=== PATIENT | male | born 1950 | race Caucasian/White ===

== ENCOUNTER 2021-02-17 18:17 | Inpatient (IN) ==
--- OUTSIDE RECORDS SUMMARY | 2021-02-17 18:19 | External Medical Summary | Continuity of Care Document ---
:1950 Author Name Arlene Dow, Provider Address Unavailable Unavailable , Care Team Providers Name Role Phone Unavailable Unavailable Unavailable Kareen Pedraza PA-C Unavailable [email or web address] PRICE Dow, CHARLETTE Tejeda Unavailable Unavailable Unavailable Unavailable Unavailable Problems Elevated blood protein (273.8) (E88.09) Diabetes mellitus type 2, uncontrolled (250.02) (E11.65) Type 2 diabetes mellitus (250.00) (E11.9) Allergies and Adverse Reactions No Known Allergies (Allergy) Medications metFORMIN HCl - 500 MG Oral Tablet; TAKE 1 TABLET IN THE MORNING AND 2 TABLETS IN THE EVENING CHELITA Pedraza Quantity: 270 Refills: 3 ReliOn Ultima Test In Vitro Strip; TEST TWICE DAILY. CHELITA Pedraza Start: 27-Nov-2016 Quantity: 1 100 Strip Box Refills: 3 Procedures Procedures not documented Immunizations Immunizations not documented Family History Father Family history of cardiac disorder (V17.49) (Z82.49) Status: Active Family history of myocardial infarction (V17.3) (Z82.49) Sta tus: Active Brother Family history of acute myocardial infarction (V17.3) (Z82.4 9) Status: Active uncle Family history of Coronary artery disease (414.00) (I25.10) Status: Active Plan of Treatment Planned Observations Planned Goals not documented Results No Known Results Results not documented
--- OUTSIDE RECORDS SUMMARY | 2021-02-17 18:20 | External Medical Summary | Continuity of Care Document ---
:1950 Author Name Arlene Dow, Provider Address Unavailable Unavailable , Care Team Providers Name Role Phone Unavailable Unavailable Unavailable Kareen Pedraza PA-C Unavailable [email or web address] PRICE Dow, CHARLETTE Tejeda Unavailable Unavailable Unavailable Unavailable Unavailable Problems Diabetes mellitus type 2, uncontrolled (250.02) (E11.65) Elevated blood protein (273.8) (E88.09) Type 2 diabetes mellitus (250.00) (E11.9) Allergies [...]
[2021-02-17] MEDS ORDERED: dexAMETHasone**PF** 10 MG/ML VIAL IV ONE (18:47)
[2021-02-17] MEDS ORDERED: ALBUTEROL HFA 8 GM INHALER INH ONE (18:47)
[2021-02-17] MEDS ORDERED: guaiFENesin 600 MG TABCR PO STA (18:47)
[2021-02-17] MEDS ORDERED: SODIUM CHLORIDE 0.9% 1000ML 1,000 ML IV ONE (18:50)
[2021-02-17] MEDS ORDERED: FAMOTIDINE 20MG IV PUSH 20 MG/5 ML SYR IV STA (18:52)
[2021-02-17 20:01] LABS: Basophils # (auto) 0.01 K/uL (0-0.2); Basophils % (auto) 0.2 %; Eosinophils # (auto) 0.01 K/uL (0-0.5); Eosinophils % (auto) 0.2 %; Hematocrit (blood only) 38.9 % (42-52); Hemoglobin 13.4 g/dL (14.0-18.0); Immature Granulocytes # (auto) 0.02 K/uL (0.00-0.02); Immature Granulocytes % (auto) 0.3 %; Lymphocytes # (auto) 1.13 K/uL (1.2-3.4); Lymphocytes % (auto) 17.3 %; Mean Corpuscular Hemoglobin 29.7 pg (25-34); Mean Corpuscular Hgb Conc 34.4 g/dL (32-36); Mean Corpuscular Volume 86.3 fL (80-100); Mean Platelet Volume 9.4 fL (7.4-10.4); Monocytes # (auto) 0.54 K/uL (0.11-0.59); Monocytes % (auto) 8.2 %; Neutrophils # (auto) 4.84 K/uL (1.4-6.5); Neutrophils % (auto) 73.8 %; Platelet Count 241 K/uL (130-400); RDW Coefficient of Variation 13.4 % (11.5-14.5); RDW Standard Deviation 42.8 fL (36.4-46.3); Red Blood Count 4.51 M/uL (4.7-6.1); White Blood Count 6.55 K/uL (4.8-10.8)
[2021-02-17 20:15] LABS: Alanine Aminotransferase 20 U/L (12-78); Aspartate Aminotransferase 18 U/L (15-37); BUN Creatinine Ratio 16.1 (10-20); Bilirubin Direct 0.1 mg/dl (0-0.2); Blood Urea Nitrogen 22 mg/dl (7-18); Calcium 8.4 mg/dl (8.5-10.1); Carbon Dioxide 27 mmol/L (21-32); Chloride 102 mmol/L (98-107); Est GFR (African American) 60.6; Est GFR (Non-African American) 52.3; Glucose 255 mg/dl (70-99); Lipase 29 U/L (73-393); Potassium 4.1 mmol/L (3.5-5.1); Sodium 134 mmol/L (136-145)
[2021-02-17 20:18] LABS: Albumin Globulin Ratio 0.5 (0.9-2); Alkaline Phosphatase 94 U/L (45-117); Bilirubin,Total 0.4 mg/dl (0.2-1); Creatine Kinase 102 U/L (39-308); Globulin 5.6 gm/dl (2.5-4.0); Phosphorus 2.5 mg/dl (2.5-4.9); Total Protein 8.6 gm/dl (6.4-8.2); Troponin I < 0.015 ng/ml (0-0.045)
[2021-02-17 20:42] LABS: Influenza A virus by PCR Negative (Neg); Influenza B virus by PCR Negative (Neg); RSV by PCR Negative (Neg)
--- NOTE | 2021-02-17 20:51 | XRay Report ---
XR chest 1V portable CLINICAL HISTORY: Chest pain. COMPARISON STUDY: Chest radiograph May 09, 2016. FINDINGS: Lung volumes are mildly diminished. There is no pneumothorax or pleural effusion. There is mild interstitial thickening and patchy bilateral airspace opacity. Cardiac size is normal. Mediastin al contours are unremarkable. IMPRESSION: Mild bilateral airspace opacities and interstitial thickening which favor an infectious process such as viral pneumonia. Radiographic follow-up is recommended ACT 112: Negative or not required by law. Electronically signed by: Rohith Jansen M.D. 02/17/2021 8:49 PM
[2021-02-17 20:54] LABS: SARS CoV2 RNA(COVID-19) InHosp POSITIVE (Negative)
--- NOTE | 2021-02-17 22:17 | Emergency Department Note ---
Impression & Plan Pneumonia due to COVID-19 virus, Hyperglycemia, Hypoxia, Dehydration ED Provider Note NAME: BRIAN PINEDA AGE: 70 SEX: M ARRIVES VIA: Walk-In INFORMANT: Patient, ED PROVIDER(S): Jameel Rod MD CHIEF COMPLAINT: Cough, fevers, bodyaches. PLAN: Disposition: Admit. MEDICAL DECISION MAKING: The patient is a pleasant 70-year-old gentleman with a past medical history of diabetes who presents emergency department with approximately 10 days of progressive cough, congestion, body aches, feverishness with loss of taste and smell that he reports became much worse over the past couple of days where he will wake up at night with coughing fits unable to catch his breath. He reports his also has similar symptoms but not as bad. They have yet to be tested for COVID-19. He denies any known COVID-19 exposures other than some neighbors who had children who are asymptomatic but tested positive that he was briefly around. He reports tightness throughout his chest but denies any chest pain with deep inspiration. He reports some nausea but no vomiting. He has loose stools. On arrival patient fatigued appearing but no acute distress, afebrile with stable vital signs. His O2 saturation however will go down to as low as 91% on room air. Given this in the setting of his dyspnea he was placed on 2 L nasal cannula. He does appear clinically dry. Lungs with scant intermittent wheeze but is otherwise clear. Abdomen is benign. EKG without overt acute ischemia. WBC and platelets within normal limits. H/H 13.4/30.9 without recent values for comparison. Chemistry without metabolic acidosis. BUN is 22 consistent with the patient's clinically dry appearance. Glucose 255 without acidosis. Electrolytes and LFTs unremarkable. Troponin negative/undetectable. Lipase is not elevated. COVID-19 PCR was positive. Chest x-ray shows bilateral infiltrates consistent with COVID-19 pneumonia. Upon reevaluation patient did report feeling some improvement after IV fluid hydration, dexamethasone, guaifenesin and albuterol MDI. However given the patient's comorbidities with diabetes and mild hypoxia in the setting of COVID-19 pneumonia he did agree with plan for admission. Case was discussed with Dr. Montemayor, [facility] hospitalist, who will evaluate the patient for admission. Triage Nursing notes reviewed and agree them. Prior medical records reviewed Vital Signs: reviewed and remarkable for hypoxia. Differential diagnosis: Reactive airway disease, pneumonia, pneumothorax, COPD, CHF, infections, cardiac ischemia, pulmonary embolism, musculoskeletal, gastrointestinal, as well as other pathologies. ER treatment provided: See below. Diagnostics interpreted by me: ECG: NSR, 88 bpm, no ectopy, no overt ST elevation or depression. Cardiac Monitoring: An order for continuous cardiac monitoring was placed and demonstrated NSR, 88 bpm, no ectopy. Laboratory studies: See below Imaging studies: See below Consultation(s): Case was discussed with Dr. Montemayor, [facility] hospitalist, who will evaluate the patient for admission. HPI: The patient is a pleasant 70-year-old gentleman with a past medical history of diabetes who presents emergency department with approximately 10 days of progressive cough, congestion, body aches, feverishness with loss of taste and smell that he reports became much worse over the past couple of days where he will wake up at night with coughing fits unable to catch his breath. He reports his also has similar symptoms but not as bad. They have yet to be tested for COVID-19. He denies any known COVID-19 exposures other than some neighbors who had children who are asymptomatic but tested positive that he was briefly around. He reports tightness throughout his chest but denies any chest pain with deep inspiration. He reports some nausea but no vomiting. He has loose stools. ROS: See above HPI for pertinent positives & negatives. A total of 10 systems re viewed and were otherwise negative. PAST MEDICAL HISTORY:See Below PAST SURGICAL HISTORY:See Below FAMILY HISTORY:See Below SOCIAL HISTORY:See Below HOME MEDICATIONS:See Below ALLERGIES:See Below VITALS:See Below PHYSICAL EXAMINATION: GENERAL: Awake, alert, fatigued-appearing, in no distress HENT: Normocephalic, atraumatic. Oropharynx with dry mucous membranes and otherwise unremarkable. EYES: Normal conjunctiva. Sclera non-icteric. NECK: Supple. No nuchal rigidity. FROM. No JVD. RESPIRATORY: Scant intermittent wheeze, otherwise, clear to auscultation. CARDIAC: Regular rate, normal rhythm. Extremities warm and well perfused. Pulses equal. ABDOMEN: Soft, non-distended. No tenderness to palpation. No rebound or guarding. No masses. RECTAL: Deferred. MUSCULOSKELETAL: Chest examination reveals no tenderness. The back is symmetrical on inspection without obvious abnormality. There is no CVA tenderness to palpation. No joint edema. LOWER EXTREMITIES: Calves are equal size bilaterally and non-tender. No edema. No discoloration. NEURO: Normal sensorium. No sensory or motor deficits noted. SKIN: No rash or jaundice noted. Jameel Rod MD Past Med/Surg History Medical History Type 2 diabetes mellitus Social History Smoking Status: Former smoker Hx Alcohol Use: No Hx Substance Use: No Preferred Language: [employer] [employer] Manager Required: No Beliefs That Will Affect Care: None Current Living Situation: Spouse Other Information That Helps Us Care for You: No Feels Safe at Home: Yes Safety Concerns: Feels Safe At This Time Assistive Devices: None Allergies Allergies Allergy/AdvReac Type Severity Reaction Status Date / Time No Known Allergies Allergy Verified 02/17/21 19:50 Home Meds Home Medications Medication Instructions Recorded Confirmed insulin NPH and regular human 10 - 15 unit SUBCUT AC 02/17/21 02/17/21 [Novolin 70-30 FlexPen U-100] Results & Data (ED) Vital Signs Vital Signs - 24 hr 02/17/21 18:21 02/17/21 18:57 02/17/21 19:46 Temperature 37.2 C Temperature Source Temporal Artery Scan Pulse Rate 93 H 87 Pulse Rate from SpO2 Sensor 88 Respiratory Rate 20 32 H Blood Pressure 174/82 H 148/81 H Blood Pressure Mean 112 103 Pulse Oximetry 92 90 94 Oxygen Delivery Method Room Air Room Air Nasal Cannula Oxygen Flow Rate 0 Sepsis Recent Fever Within 48 Hours Yes Sepsis New/Unexplained Change in Mental Status No Sepsis Action Taken by Nursing No Action Required Oxygen Flow Rate - Titration 2 Pulse Oximetry Post Tiitration 96 02/17/21 20:00 02/17/21 20:34 02/17/21 21:00 Temperature Temperature Source Pulse Rate 83 89 87 Pulse Rate from SpO2 Sensor 84 89 86 Respiratory Rate 30 H 26 H 32 H Blood Pressure 155/83 H 158/92 H 127/78 Blood Pressure Mean 107 114 94 Pulse Oximetry 96 96 93 Oxygen Delivery Method Oxygen Flow Rate Sepsis Recent Fever Within 48 Hours Sepsis New/Unexplained Change in Mental Status Sepsis Action Taken by Nursing Oxygen Flow Rate - Titration Pulse Oximetry Post Tiitration 02/17/21 21:49 04/05/21 22:00 02/17/21 22:30 Temperature Temperature Source Pulse Rate 87 88 96 H Pulse Rate from SpO2 Sensor 87 89 Respiratory Rate 24 29 H 21 Blood Pressure 137/81 147/84 H Blood Pressure Mean 99 105 Pulse Oximetry 92 91 Oxygen Delivery Method Oxygen Flow Rate Sepsis Recent Fever Within 48 Hours Sepsis New/Unexplained Change in Mental Status Sepsis Action Taken by Nursing Oxygen Flow Rate - Titration Pulse Oximetry Post Tiitration 02/17/21 23:00 Temperature Temperature Source Pulse Rate 87 Pulse Rate from SpO2 Sensor 87 Respiratory Rate 30 H Blood Pressure Blood Pressure Mean Pulse Oximetry 93 Oxygen Delivery Method Oxygen Flow Rate Sepsis Recent Fever Within 48 Hours Sepsis New/Unexplained Change in Mental Status Sepsis Action Taken by Nursing Oxygen Flow Rate - Titration Pulse Oximetry Post Tiitration Laboratory Data Attestation: I reviewed the patient's lab results. Result diagrams: 02/17/21 19:30 02/17/21 19:30 Lab Results 02/17/21 02/17/21 02/17/21 Range/Units 19:30 19:30 19:30 WBC 6.55 (4.8-10.8) K/uL RBC 4.51 L (4.7-6.1) M/uL Hgb 13.4 L (14.0-18.0) g/dL Hct 38.9 L (42-52) % MCV 86.3 (80-100) fL MCH 29.7 (25-34) pg MCHC 34.4 (32-36) g/dL RDW Std Deviation 42.8 (36.4-46.3) fL RDW Coeff of David 13.4 (11.5-14.5) % Plt Count 241 (130-400) K/uL MPV 9.4 (7.4-10.4) fL Immature Gran % (Auto) 0.3 % Neut % (Auto) 73.8 % Lymph % (Auto) 17.3 % [place] % (Auto) 8.2 % Eos % (Auto) 0.2 % Baso % (Auto) 0.2 % Neut # (Auto) 4.84 (1.4-6.5) K/uL Lymph # (Auto) 1.13 L (1.2-3.4) K/uL [place] # (Auto) 0.54 (0.11-0.59) K/uL Eos # (Auto) 0.01 (0-0.5) K/uL Baso # (Auto) 0.01 (0-0.2) K/uL Immature Gran # (Auto) 0.02 (0.00-0.02) K/uL Sodium 134 L (136-145) mmol/L Potassium 4.1 (3.5-5.1) mmol/L Chloride 102 (98-107) mmol/L Carbon Dioxide 27 (21-32) mmol/L Anion Gap 5.0 (3-11) BUN 22 H (7-18) mg/dl Creatinine 1.37 (0.6-1.4) mg/dl Est Cr Clr Drug Dosing Not Reportable Est GFR ( Amer) 60.6 Est GFR (Non-Af Amer) 52.3 BUN/Creatinine Ratio 16.1 (10-20) Glucose 255 H (70-99) mg/dl Calcium 8.4 L (8.5-10.1) mg/dl Phosphorus 2.5 (2.5-4.9) mg/dl Magnesium 2.0 (1.8-2.4) mg/dl Total Bilirubin 0.4 (0.2-1) mg/dl Direct Bilirubin 0.1 (0-0.2) mg/dl AST 18 (15-37) U/L ALT 20 (12-78) U/L Alkaline Phosphatase 94 (45-117) U/L Total Creatine Kinase 102 (39-308) U/L Troponin I < 0.015 (0-0.045) ng/ml Total Protein 8.6 H (6.4-8.2) gm/dl Albumin 3.0 L (3.4-5.0) gm/dl Globulin 5.6 H (2.5-4.0) gm/dl Albumin/Globulin Ratio 0.5 L (0.9-2) Lipase 29 L (73-393) U/L COVID-19 Eval Order [facility]FluRsv at [facility] SARS-CoV-2 (PCR) (Negative) Influenza Type A (PCR) (Neg) Influenza Type B (PCR) (Neg) RSV (RT-PCR) (Neg) 02/17/21 Range/Units 19:30 WBC (4.8-10.8) K/uL RBC (4.7-6.1) M/uL Hgb (14.0-18.0) g/dL Hct (42-52) % MCV (80-100) fL MCH (25-34) pg MCHC (32-36) g/dL RDW Std Deviation (36.4-46.3) fL RDW Coeff of David (11.5-14.5) % Plt Count (130-400) K/uL MPV (7.4-10.4) fL Immature Gran % (Auto) % Neut % (Auto) % Lymph % (Auto) % [place] % (Auto) % Eos % (Auto) % Baso % (Auto) % Neut # (Auto) (1.4-6.5) K/uL Lymph # (Auto) (1.2-3.4) K/uL [place] # (Auto) (0.11-0.59) K/uL Eos # (Auto) (0-0.5) K/uL Baso # (Auto) (0-0.2) K/uL Immature Gran # (Auto) (0.00-0.02) K/uL Sodium (136-145) mmol/L Potassium (3.5-5.1) mmol/L Chloride (98-107) mmol/L Carbon Dioxide (21-32) mmol/L Anion Gap (3-11) BUN (7-18) mg/dl Creatinine (0.6-1.4) mg/dl Est Cr Clr Drug Dosing Est GFR ( Amer) Est GFR (Non-Af Amer) BUN/Creatinine Ratio (10-20) Glucose (70-99) mg/dl Calcium (8.5-10.1) mg/dl Phosphorus (2.5-4.9) mg/dl Magnesium (1.8-2.4) mg/dl Total Bilirubin (0.2-1) mg/dl Direct Bilirubin (0-0.2) mg/dl AST (15-37) U/L ALT (12-78) U/L Alkaline Phosphatase (45-117) U/L Total Creatine Kinase (39-308) U/L Troponin I (0-0.045) ng/ml Total Protein (6.4-8.2) gm/dl Albumin (3.4-5.0) gm/dl Globulin (2.5-4.0) gm/dl Albumin/Globulin Ratio (0.9-2) Lipase (73-393) U/L COVID-19 Eval Order SARS-CoV-2 (PCR) POSITIVE A* (Negative) Influenza Type A (PCR) Negative (Neg) Influenza Type B (PCR) Negative (Neg) RSV (RT-PCR) Negative (Neg) Administered Medications Remdesivir 200 mg/ Sodium (Chloride) 250 mls @ 125 mls/hr IV ONE ONE; Protocol Stop: 02/18/21 04:29 Last Admin: 02/18/21 02:45 Dose: 125 mls/hr Documented by: [id number] Insulin Aspart (Insulin Aspart 100 Units/Ml 3 Ml Pen) 0 units SC ACHS HERI Stop: 03/20/21 02:29 Last Admin: 02/18/21 02:43 Dose: Not Given Documented by: [id number] Discontinued Medications Albuterol (Albuterol Hfa 8 Gm Inhaler) 2 puffs INH NOW ONE Stop: 02/17/21 18:48 Last Admin: 02/17/21 19:31 Dose: 2 puffs Documented by: [id number] Dexamethasone Sodium Phosphate (DexamethasonePf 10 Mg/Ml Vial) 10 mg IV NOW ONE Stop: 02/17/21 18:48 Last Admin: 02/17/21 19:31 Dose: 10 mg Documented by: [id number] Guaifenesin (Guaifenesin 600 Mg Tabcr) 600 mg PO NOW STA Stop: 02/17/21 18:48 Last Admin: 02/17/21 19:31 Dose: 600 mg Documented by: [id number] Sodium Chloride (Nss 1000ml) 1,000 mls @ 999 mls/hr IV .Q1H1M ONE Stop: 02/17/21 19:50 Last Infusion: 02/17/21 20:38 Dose: 0 mls/hr Documented by: [id number] Admin: 02/17/21 19:31 Dose: 999 mls/hr Documented by: [id number] Famotidine (Pepcid 20mg Iv Push) 20 mg in 5 mls @ 2.5 mls/min IV NOW STA Stop: 02/17/21 18:53 Last Admin: 02/17/21 19:31 Dose: 2.5 mls/min Documented by: [id number] Imaging Data Radiologist's Impression: Chest X-Ray 02/17/21 18:48 XR chest 1V portable CLINICAL HISTORY: Chest pain. COMPARISON STUDY: Chest radiograph May 09, 2016. FINDINGS: Lung volumes are mildly diminished. There is no pneumothorax or pleural effusion. There is mild interstitial thickening and patchy bilateral airspace opacity. Cardiac size is normal. Mediastinal contours are unremarkable. IMPRESSION: Mild bilateral airspace opacities and interstitial thickening which favor an infectious process such as viral pneumonia. Radiographic follow-up is recommended ACT 112: Negative or not required by law. Electronically signed by: Rohith Jansen M.D. 02/17/2021 8:49 PM Discharge Plan Visit Data Chief Complaint: Fever Stated Complaint: fever ED Provider: Jameel Rod Discharge Problem: Pneumonia due to COVID-19 virus, Hyperglycemia, Hypoxia, Dehydration Patient Disposition: Admitted As Inpatient Discharge Instructions Interventions: ED Discharge Assessment Last Done: 02/18/21 01:04
[2021-02-18] MEDS ORDERED: ACETAMINOPHEN 325 MG TAB PO PRN (02:01)
[2021-02-18] MEDS ORDERED: NITROGLYCERIN SL 0.4 MG/TAB TAB SL PRN (02:01)
[2021-02-18] MEDS ORDERED: ONDANSETRON INJ 2 MG/ML 2 ML VIAL IV PRN (02:01)
[2021-02-18] MEDS ORDERED: guaiFENesin SUGAR FREE 200 MG/10 ML UDC PO PRN (02:01)
[2021-02-18] MEDS ORDERED: CARBOHYDRATES FOR HYPOGLYCEMIA PO PRN (02:15)
[2021-02-18] MEDS ORDERED: GLUCOSE 10 TABS/TUBE PO PRN (02:15)
[2021-02-18] MEDS ORDERED: DEXTROSE 50% 50 ML SYRINGE IV PRN (02:15)
[2021-02-18] MEDS ORDERED: GLUCOSE 40% GEL 15 GM TUBE PO PRN (02:15)
[2021-02-18] MEDS ORDERED: GLUCAGON FOR INJ 1 MG VIAL IM PRN (02:15)
[2021-02-18] MEDS ORDERED: REMDESIVIR 200 MG in SODIUM CHLORIDE 0.9% 210 ML IV ONE (02:30)
[2021-02-18] MEDS ORDERED: INSULIN ASPART 100 UNITS/ML 3 ML PEN SC SCH (02:30)
[2021-02-18] MEDS ORDERED: INSULIN GLARGINE SOLOSTAR 100 UNITS/ML 3 ML PEN SC SCH (02:30)
--- NOTE | 2021-02-18 02:40 | History and Physical Report ---
DATE OF ADMISSION: 02/17/2021 CHIEF COMPLAINT: Shortness of breath and cough. HISTORY OF PRESENT ILLNESS: This is a 70-year-old male with past medical history significant for type 2 diabetes, on insulin, having COVID kind of symptoms since the last 10 days with a cough, short of breath, headaches, poor appetite, nausea, body aches, weakness, who came to the ER and he was COVID positive and his oxygen saturations were up and down in the low 90s. He was given 2 liters oxygen. So we were called for admission. Chest x-ray shows multifocal pneumonia. Currently resting comfortably and hemodynamically stable. Currently has some headache. Has some blurred visions. No earache, no runny nose, no sore throat. Denies any chest pain, no abdominal pain, no diarrhea. ALLERGIES: No known drug allergies. PAST MEDICAL HISTORY: As mentioned above. PAST SURGICAL HISTORY: No surgical history on file. MEDICATIONS: The patient is on insulin NPH a.c. FAMILY HISTORY: Significant for father has heart attack, mother has gastrointestinal disorder, brother has heart attack. SOCIAL HISTORY: . No smoking, no alcohol. REVIEW OF SYSTEMS: As per HPI. Rest of the review of systems negative. PHYSICAL EXAMINATION: GENERAL: The patient is of moderate built, not in acute distress. VITAL SIGNS: Temperature 37.2, pulse 87, respiratory rate in 20s, blood pressure 147/84, oxygen 93%. HEENT: Pupils equal, round, and reactive to light. Oral mucosa moist. NECK: No JVD, no neck masses seen. CARDIOVASCULAR: S1, S2 heard. Regular rate and rhythm, no murmur, no gallop. RESPIRATORY SYSTEM: Normal AP diameter. No accessory muscle use. No wheezing, no crackles. ABDOMEN: Soft, bowel sounds present, nontender. No distention. CENTRAL NERVOUS SYSTEM: Cranial nerves II-XII grossly intact, nonfocal. EXTREMITIES: No edema, no erythema. LABORATORY DATA: WBC 6.5, hemoglobin 13.4, hematocrit 38.9, platelets 241. Sodium 134, potassium 4.4, chloride 102, bicarbonate 27, BUN 22, creatinine 1.3, serum glucose 255, calcium 8.4, phosphorus 2.5, magnesium 2, total bilirubin 0.4, direct bilirubin 0.1, AST 18, ALT 20, alkaline phosphatase 94, total creatinine kinase 102. Troponin I less than 0.015. Lipase 29. SARS-CoV-2 PCR positive. Influenza A and B PCR negative. RSV PCR negative. IMAGING DATA: Chest x-ray, some mild bilateral airspace opacities and interstitial thickening which favor infectious process such as viral pneumonia. EKG: Normal sinus rhythm with a rate of 88, no acute ST changes seen. ASSESSMENT AND PLAN: This is a 70-year-old male who presents with COVID pneumonia. 1. COVID pneumonia: Oxygen going up and down, may need 2 liters oxygen. Received Decadron in the ER. Will continue with Decadron and remdesivir. and follow remdesivir labs. Closely monitor in the hospital. Follow the D- dimers and troponin levels in the a.m. Follow the labs in the a.m. 2. Diabetes: On insulin. Patient likes to take his own insulin. Monitor the blood sugar while the patient is on steroids. 3. Deep venous thrombosis prophylaxis: Lovenox. DISPOSITION: Closely monitor in tele floor. Level 1 full code. Expect to discharge home and follow with family doctor. MILO
[2021-02-18] MEDS: SODIUM CHLORIDE 0.9% 10ML FLUSH IV SCH (04:53)
[2021-02-18] MEDS: ENOXAPARIN INJ 40 MG/0.4 ML SYR SQ SCH (06:03)
[2021-02-18 06:47] LABS: Basophils # (auto) 0.01 K/uL (0-0.2); Basophils % (auto) 0.2 %; Hemoglobin 13.4 g/dL (14.0-18.0); Immature Granulocytes # (auto) 0.02 K/uL (0.00-0.02); Immature Granulocytes % (auto) 0.3 %; Lymphocytes # (auto) 0.95 K/uL (1.2-3.4); Lymphocytes % (auto) 15.1 %; Mean Corpuscular Hemoglobin 29.1 pg (25-34); Mean Corpuscular Hgb Conc 33.5 g/dL (32-36); Mean Platelet Volume 9.5 fL (7.4-10.4); Monocytes # (auto) 0.33 K/uL (0.11-0.59); Monocytes % (auto) 5.2 %; Neutrophils % (auto) 79.2 %; Platelet Count 241 K/uL (130-400); RDW Coefficient of Variation 13.4 % (11.5-14.5); RDW Standard Deviation 42.6 fL (36.4-46.3); White Blood Count 6.31 K/uL (4.8-10.8)
[2021-02-18 07:15] LABS: Alanine Aminotransferase 19 U/L (12-78); Albumin Level 2.9 gm/dl (3.4-5.0); Aspartate Aminotransferase 17 U/L (15-37); BUN Creatinine Ratio 18.4 (10-20); Bilirubin Direct < 0.1 mg/dl (0-0.2); Blood Urea Nitrogen 22 mg/dl (7-18); Calcium 8.5 mg/dl (8.5-10.1); Carbon Dioxide 23 mmol/L (21-32); Chloride 106 mmol/L (98-107); Creatinine Clr Calc Pharmacy 62.9 ml/min; Est GFR (African American) 72.5; Est GFR (Non-African American) 62.6; Glucose 154 mg/dl (70-99); Magnesium 2.2 mg/dl (1.8-2.4); Potassium 3.7 mmol/L (3.5-5.1); Sodium 135 mmol/L (136-145)
[2021-02-18 07:20] LABS: Alkaline Phosphatase 94 U/L (45-117); Bilirubin,Total 0.3 mg/dl (0.2-1); Total Protein 8.4 gm/dl (6.4-8.2); Troponin I < 0.015 ng/ml (0-0.045)
[2021-02-18 07:33] LABS: D Dimer 720 ug/L FEU (0-500)
[2021-02-18 07:50] LABS: Estimated Average Glucose 206 mg/dl; Hemoglobin A1C 8.8 % (4.5-5.6)
[2021-02-18] MEDS ORDERED: OPTIRAY 320 125ml IV ONE (08:30)
--- NOTE | 2021-02-18 08:49 | CT Scan Report ---
CT ANGIOGRAPHY OF THE CHEST, PULMONARY EMBOLUS PROTOCOL CLINICAL HISTORY: Shortness of breath. Cough. Covid. COMPARISON STUDY: Chest radiograph February 17, 2021. TECHNIQUE: Following IV administration of 119 mL of Optiray-320, helical axial images of the chest we re obtained utilizing the pulmonary embolus protocol. Maximal intensity projections and sagittal and coronal reformats were viewed on an independent 3D workstation. IV contrast was administered withou t complication. Automated exposure control was utilized for the study. A dose lowering technique wa s utilized adhering to the principles of ALARA. CT DOSE: 520.83 mGycm FINDINGS: No pulmonary emboli are identified. Mild cardiomegaly is noted. There is moderate to marke d coronary artery calcification. No pericardial effusion is present. No enlarged thoracic lymph nodes are present. There is no pneumothorax or pleural effusion. Central airways are patent. Moderate mult ifocal groundglass opacities within the lungs are noted. These correspond to the airspace opacities o n prior chest radiograph. There is no cavitation. Bony thorax is unremarkable. Visualized portions of the upper abdomen are also unremarkable. IMPRESSION: 1. No pulmonary emboli identified. 2. Moderate multifocal groundglass opacities within the lungs consistent with viral pneumonia. 3. Moderate to marked coronary artery calcification. ACT 112: Negative or not required by law. Electronically signed by: Rohith Jansen M.D. 02/18/2021 8:48 AM
[2021-02-18] MEDS: dexAMETHasone 6 MG in SYRINGE 0 ML IV SCH (09:08)
[2021-02-18] MEDS ORDERED: guaiFENesin/DEXTROM SYRUP 200MG/20MG 10ML UDC PO PRN (12:04)
--- NOTE | 2021-02-18 14:06 | Electrocardiogram Report ---
Test Reason : Blood Pressure : / mmHG Vent. Rate : 088 BPM Atrial Rate : 088 BPM P-R Int : 152 ms QRS Dur : 096 ms QT Int : 336 ms P-R-T Axes : 061 033 028 degrees QTc Int : 406 ms Poor data quality, interpretation may be adversely affected Normal sinus rhythm Normal ECG When compared with ECG of 09-MAY-2016 13:24, No significant change was found Confirmed by Jose R Greenberg ([id number]) on 02/18/2021 2:05:56 PM Referred By: Dariusz Cordova Confirmed By:Jose R Greenberg
[2021-02-18] MEDS ORDERED: PHARMACY GLYCEMIC MGMT CONSULT SCH (14:38)
--- NOTE | 2021-02-18 15:17 | Pharmacy Report ---
Pharmacy Glycemic Short Note 2 - Date of Service February 18, 2021 - Glycemic Short BSG Results (Last 24 hours): 02/17/21 02/18/21 19:30 06:10 Glucose 255 H 154 H OUTPATIENT ANTIDIABETIC REGIMEN: * 30-40 units of insulin per day * Novolin R per scale * Novolin 70/30 12-15 units Q HS * A1c = 8.8 02/18/21 ASSESSMENT: * Patient admitted to COVID19 unit for viral pneumonia * Patient states he is type 1 diabetic however documentation elsewhere in medical record states type 2 * He is currently receiving IV dexamethasone which will likely lead to greater insulin resistance * He is not willing to allow outside help with his insulin regimen at this time. Will follow the patient's BSGs with his own management and make attempts to intervene if he is struggling. He has his own glucometer as well as CGM. I ask that his BSGs be recorded on form NS-824 per policy. I also asked that RN observe and document doses of insulin given. * His own Novolin R were ID'd and relabeled. We have dispensed a vial of NPH for him to use at bedtime rather than 70/30 insulin as the rapid acting component isn't ideal for HS admin. PLAN FOR INPATIENT GLYCEMIC CONTROL: * Patient to manage his own glycemic control today using SQ Regular insulin ACHS and NPH at bedtime * RN to observe and chart all insulin doses administered. Patient to document doses given and BSGs recorded on NS-824 form * RN to check hospital [place] against patient's CGM at least once daily and report variation greater than 20% (this disqualifies ongoing use of CGM) * Pharmacy will touch base with RN periodically to gather info on patient's glycemic control PLAN FOR DISCHARGE: * to be determined.
--- NOTE | 2021-02-18 15:44 | Hospitalist Progress Note ---
Date of Service February 18, 2021 Assessment & Plan (1) Pneumonia due to COVID-19 virus: Symptomatic for 10 days with desaturation on admission CTA did not show any pulmonary embolism but showed moderate multifocal groundglass opacities within the lungs consistent with viral pneumonia Convalescent plasma therapy was not considered Has been getting remdesivir and dexamethasone Clinically stable and has not been requiring any oxygen to maintain saturation We will continue current management (2) Diabetes mellitus type 2, insulin dependent: Noted to be hyperglycemic on admission at 255 The patient likes to have his blood sugar monitored and administer insulin accordingly Glycemic pharmacist has been consulted Hemoglobin A1c was 8.8 as of 02/18/2021 DVT prophylaxis Subcu Lovenox CODE STATUS Full Admission and Anticipated Discharge Date Admission Date: February 17, 2021 Subjective 02/18/2021 The patient was seen and examined in telemetry and Covid unit He was admitted with increasing shortness of breath and was noted to have Covid positive He required 2 L of oxygen during admission but since this morning he is saturating well with room air Has cough but denies any other symptoms Review of Systems Review of Systems: All systems reviewed and are unremarkable except as noted below Respiratory: + cough and + dyspnea on exertion; no dyspnea Physical Exam Physical Exam: Sitting at the edge of the bed without any apparent distress Constitutional: well developed, well nourished and average body habitus; not ill appearing Eyes: PERRL, conjunctivae normal, anicteric sclerae ENMT: external ear and nose normal, oropharynx normal Neck: trachea midline, no thyromegaly Respiratory: no respiratory distress Auscultation: lungs clear to auscultation bilaterally and + diminished lung sounds (Lower part of the lungs) Cardiovascular: Rate/Rhythm: regular rate and regular rhythm; not tachycardic Heart Sounds: no murmur Extremities: no edema Gastrointestinal (Abdomen): Inspection/Auscultation: normal bowel sounds; abdomen not distended Percussion/Palpation: abdomen soft; abdomen nontender Musculoskeletal: No acute arthritis in any joint Neurologic: Alert, awake and oriented x3 Psychiatric: A+Ox3, euthymic affect Lymphatic: no cervical or axillary lymphadenopathy Results & Data Results & Data ([facility]) Vital Signs (Past 12 Hours) Vital Signs Temp Pulse Pulse Resp BP Pulse Ox 02/18/21 15:26 79 02/18/21 11:29 36.7 C 85 16 156/89 H 92 02/18/21 11:07 71 02/18/21 07:24 36.6 C 70 16 141/83 H 91 Laboratory Results Short CBC 02/17/21 02/18/21 Range/Units 19:30 06:10 WBC 6.55 6.31 (4.8-10.8) K/uL Hgb 13.4 L 13.4 L (14.0-18.0) g/dL Hct 38.9 L 40.0 L (42-52) % Plt Count 241 241 (130-400) K/uL BMP 02/17/21 02/18/21 19:30 06:10 Sodium 134 L 135 L Potassium 4.1 3.7 Chloride 102 106 Carbon Dioxide 27 23 BUN 22 H 22 H Creatinine 1.37 1.18 Glucose 255 H 154 H Calcium 8.4 L 8.5 Cardiac Enzymes 02/17/21 02/18/21 Range/Units 19:30 06:10 Total Creatine Kinase 102 (39-308) U/L Troponin I < 0.015 < 0.015 (0-0.045) ng/ml Liver Function 02/17/21 02/18/21 Range/Units 19:30 06:10 Total Bilirubin 0.4 0.3 (0.2-1) mg/dl Direct Bilirubin 0.1 < 0.1 (0-0.2) mg/dl AST 18 17 (15-37) U/L ALT 20 19 (12-78) U/L Alkaline Phosphatase 94 94 (45-117) U/L Albumin 3.0 L 2.9 L (3.4-5.0) gm/dl Medications Administered Current Inpatient Medications Acetaminophen (Acetaminophen 325 Mg Tab) 650 mg PO Q4H PRN PRN Reason: Pain or Fever Stop: 03/20/21 02:00 Dextrose (Dextrose 50% 50 Ml Syringe) 25 - 50 ml IV UD PRN; Protocol PRN Reason: Hypoglycemia Protocol Stop: 03/20/21 02:14 Enoxaparin Sodium (Enoxaparin Inj 40 Mg/0.4 Ml Syr) 40 mg SQ Q24H [facility] Stop: 03/20/21 05:59 Last Admin: 02/18/21 06:03 Dose: 40 mg Documented by: Glucagon (Glucagon For Inj 1 Mg Vial) 1 mg IM UD PRN; Protocol PRN Reason: Hypoglycemia Protocol Stop: 03/20/21 02:14 Glucose (Glucose 40% Gel 15 Gm Tube) 15 - 30 gm PO UD PRN; Protocol PRN Reason: Hypoglycemia Protocol Stop: 03/20/21 02:14 Glucose (Glucose 10 Tabs/Tube) 4 - 8 tabs PO UD PRN; Protocol PRN Reason: Hypoglycemia Protocol Stop: 03/20/21 02:14 Guaifenesin (Guaifenesin Sugar Free 200 Mg/10 Ml Udc) 200 mg PO Q6H PRN PRN Reason: Cough Stop: 03/20/21 02:00 Guaifenesin (Guaifenesin 600 Mg Tabcr) 600 mg PO Q12 [facility]I Stop: 03/20/21 20:59 Guaifenesin/Dextromethorphan (Guaifenesin/Dextrom Syrup 200mg/20mg 10ml Udc) 10 ml PO Q6H PRN PRN Reason: Cough Stop: 03/20/21 12:03 Remdesivir 100 mg/ Sodium (Chloride) 250 mls @ 250 mls/hr IV Q24H [facility]I; Protocol Stop: 02/22/21 12:59 Dexamethasone 6 mg/ Syringe 1.5 mls @ 1 mls/min IV DAILY [facility] Stop: 03/20/21 08:59 Last Admin: 02/18/21 09:08 Dose: 1 mls/min Documented by: Insulin Human NPH (Insulin Human Nph) 0 units SC HS [facility] Stop: 03/20/21 20:59 Insulin Human Regular (Insulin Human Regular) 0 units SC ACHS [facility] Stop: 03/20/21 16:29 Miscellaneous (Carbohydrates For Hypoglycemia ) 15 - 30 gm PO UD PRN PRN Reason: Hypoglycemia Treatment Stop: 03/20/21 02:14 Miscellaneous Information (Pharmacy Glycemic Mgmt Consult) 1 ea N/A UD HERI Stop: 03/20/21 14:37 Nitroglycerin (Nitroglycerin Sl 0.4 Mg/Tab Tab) 0.4 mg SL UD PRN PRN Reason: Chest Pain Stop: 03/20/21 02:00 Ondansetron HCl (Ondansetron Inj 2 Mg/Ml 2 Ml Vial) 4 mg IV Q6H PRN PRN Reason: Nausea Stop: 03/20/21 02:00 Sodium Chloride (Sodium Chloride 0.9% 10ml Flush) 30 ml IV Q24H [facility]I Stop: 02/22/21 12:01 Last Admin: 02/18/21 04:53 Dose: 30 ml Documented by:
[2021-02-18] MEDS ORDERED: INSULIN HUMAN REGULAR SC SCH (16:30)
[2021-02-18] MEDS: INSULIN HUMAN REGULAR SC SCH ×2 (17:26→21:03)
[2021-02-18] MEDS ORDERED: guaiFENesin 600 MG TABCR PO SCH (21:00)
[2021-02-18] MEDS: guaiFENesin 600 MG TABCR PO SCH (21:03)
[2021-02-18] MEDS: INSULIN HUMAN NPH SC SCH (22:45)
[2021-02-19] MEDS: ENOXAPARIN INJ 40 MG/0.4 ML SYR SQ SCH (05:13)
[2021-02-19] MEDS: guaiFENesin 600 MG TABCR PO SCH ×2 (07:38→21:47)
[2021-02-19] MEDS: INSULIN HUMAN REGULAR SC SCH ×4 (07:45→21:00)
[2021-02-19] MEDS: dexAMETHasone 6 MG in SYRINGE 0 ML IV SCH (07:49)
[2021-02-19 07:57] LABS: Creatinine Clr Calc Pharmacy 67.5 ml/min; Est GFR (Non-African American) 68.1
[2021-02-19] MEDS: REMDESIVIR 100 MG in SODIUM CHLORIDE 0.9% 230 ML IV SCH (12:26)
[2021-02-19] MEDS: SODIUM CHLORIDE 0.9% 10ML FLUSH IV SCH (12:27)
--- NOTE | 2021-02-19 14:41 | Hospitalist Progress Note ---
Date of Service February 19, 2021 Assessment & Plan (1) Pneumonia due to COVID-19 virus: COVID-19 pneumonia Hypoxia secondary to above CTA: No pulmonary emboli identified. Moderate multifocal groundglass opacities within the lungs consistent with viral pneumonia. Moderate to marked coronary ar irma calcification. Continue dexamethasone, remdesivir Supplemental oxygen as needed Monitor LFTs, renal function Nebs, Lasix PRN (2) Diabetes mellitus type 2, insulin dependent: HbA1c 8.8 Continue insulin therapy while hospitalized Monitor BGs Glycemic pharmacist consulted DVT Px: SQ Lovenox CODE STATUS Full Admission and Anticipated Discharge Date Admission Date: February 17, 2021 Subjective Patient is seen and examined bedside States having cough with minimal expectoration Dizziness much improved Denies chest pain, shortness of breath, nausea, vomiting, abdominal pain, diarrhea Saturating low 90s on room air Offers no other complaints Review of Systems Review of Systems: All systems reviewed & are unremarkable except as noted in HPI & below Physical Exam Physical Exam: Physical Exam: Vitals signs as noted above General Appearance:Moderately built and nourished, no apparent distress Head: normocephalic, Atraumatic Eyes: normal inspection, EOMI Neck: supple, Trachea midline Respiratory/Chest: Decreased breath sounds, scattered crackles Cardiovascular: S1, S2, No murmur Abdomen/GI:Soft, Non tender, Bowel sounds present Extremities/Musculoskelatal:normal inspection, no edema Neurologic/Psych:AAOX3, grossly no focal neurological deficits Skin: normal color, warm Results & Data Results & Data ([place]) Vital Signs (Past 12 Hours) Vital Signs Temp Pulse Pulse Resp BP Pulse Ox 02/19/21 11:31 36.6 C 79 20 126/71 91 02/19/21 08:00 63 02/19/21 07:01 36.5 C 63 16 122/73 93 02/19/21 03:13 36.8 C 68 18 140/73 93 Laboratory Results BMP 02/19/21 06:18 Creatinine 1.10 Liver Function 02/19/21 Range/Units 06:18 AST 14 L (15-37) U/L ALT 20 (12-78) U/L
--- NOTE | 2021-02-19 15:06 | Pharmacy Report ---
Pharmacy Glycemic Short Note 2 - Date of Service February 19, 2021 - Glycemic Short BSG Results (Last 24 hours): 02/18/21 02/19/21 17:28 07:35 POC Glucose 157 H 212 H OUTPATIENT ANTIDIABETIC REGIMEN: * 30-40 units of insulin per day * Novolin R per scale * Novolin 70/30 12-15 units Q HS * A1c = 8.8 02/18/21 ASSESSMENT: 02/19 * Patient used 10 units of NPH last evening. Today's regular insulin doses were 12 units and 15 units. BSGs have been in the 200s today. Patient continues to manage his own glycemic control. Will continue to monitor for any continued severe hyperglycemia. * He remains on IV steroids and is ordered a diet. 02/18 * Patient admitted to COVID19 unit for viral pneumonia * Patient states he is type 1 diabetic however documentation elsewhere in medical record states type 2 * He is currently receiving IV dexamethasone which will likely lead to greater insulin resistance * He is not willing to allow outside help with his insulin regimen at this time. Will follow the patient's BSGs with his own management and make attempts to intervene if he is struggling. He has his own glucometer as well as CGM. I ask that his BSGs be recorded on form NS-824 per policy. I also asked that RN observe and document doses of insulin given. * His own Novolin R were ID'd and relabeled. We have dispensed a vial of NPH for him to use at bedtime rather than 70/30 insulin as the rapid acting component isn't ideal for HS admin. PLAN FOR INPATIENT GLYCEMIC CONTROL: * Patient to manage his own glycemic control today using SQ Regular insulin ACHS and NPH at bedtime * RN to observe and chart all insulin doses administered. Patient to document doses given and BSGs recorded on NS-824 form * RN to check hospital Accuchek against patient's CGM at least once daily and report variation greater than 20% (this disqualifies ongoing use of CGM) * Pharmacy will touch base with RN periodically to gather info on patient's glycemic control PLAN FOR DISCHARGE: * to be determined.
[2021-02-19] MEDS: INSULIN HUMAN NPH SC SCH (21:00)
[2021-02-20] MEDS: ENOXAPARIN INJ 40 MG/0.4 ML SYR SQ SCH (06:27)
[2021-02-20 07:02] LABS: BUN Creatinine Ratio 33.7 (10-20); Calcium 8.5 mg/dl (8.5-10.1); Creatinine Clr Calc Pharmacy 75.8 ml/min; Est GFR (African American) 90.8; Est GFR (Non-African American) 78.4; Magnesium 2.1 mg/dl (1.8-2.4); Potassium 3.8 mmol/L (3.5-5.1)
[2021-02-20] MEDS: guaiFENesin 600 MG TABCR PO SCH ×2 (08:32→20:34)
[2021-02-20] MEDS: dexAMETHasone 6 MG in SYRINGE 0 ML IV SCH (08:37)
[2021-02-20] MEDS: INSULIN HUMAN REGULAR SC SCH ×4 (08:43→20:42)
[2021-02-20] MEDS: REMDESIVIR 100 MG in SODIUM CHLORIDE 0.9% 230 ML IV SCH (11:00)
[2021-02-20] MEDS: SODIUM CHLORIDE 0.9% 10ML FLUSH IV SCH (12:09)
--- NOTE | 2021-02-20 14:10 | Hospitalist Progress Note ---
Date of Service February 20, 2021 Assessment & Plan (1) Pneumonia due to COVID-19 virus: COVID-19 pneumonia Hypoxia secondary to above CTA: No pulmonary emboli identified. Moderate multifocal groundglass opacities within the lungs consistent with viral pneumonia. Moderate to marked coronary ar irma calcification. Continue dexamethasone, remdesivir Day #3 Supplemental oxygen as needed Monitor LFTs, renal function Nebs, Lasix PRN Check inflammatory markers, chest x-ray tomorrow (2) Diabetes mellitus type 2, insulin dependent: HbA1c 8.8 Continue insulin therapy while hospitalized Monitor BGs Glycemic pharmacist consulted DVT Px: SQ Lovenox CODE STATUS Full Admission and Anticipated Discharge Date Admission Date: February 17, 2021 Subjective Patient is seen and examined bedside Less cough today Dizziness resolved No new complaints Denies chest pain, Dyspnea, nausea, vomiting, abdominal pain, diarrhea Review of Systems Review of Systems: All systems reviewed & are unremarkable except as noted in HPI & below Physical Exam Physical Exam: Physical Exam: Vitals signs as noted above General Appearance:Moderately built and nourished, no apparent distress Head: normocephalic, Atraumatic Eyes: normal inspection, EOMI Neck: supple, Trachea midline Respiratory/Chest: Decreased breath sounds, CTA Cardiovascular: S1, S2, No murmur Abdomen/GI:Soft, Non tender, Bowel sounds present Extremities/Musculoskelatal:normal inspection, no edema Neurologic/Psych:AAOX3, grossly no focal neurological deficits Skin: normal color, warm Results & Data Results & Data ([facility]) Vital Signs (Past 12 Hours) Vital Signs Temp Pulse Pulse Resp BP Pulse Ox 02/20/21 11:21 36.7 C 60 18 129/75 90 02/20/21 08:00 53 L 02/20/21 07:54 36.6 C 61 20 114/75 90 02/20/21 04:44 36.5 C 58 L 20 124/75 95 02/20/21 02:09 60 Laboratory Results BMP 02/20/21 05:49 Sodium 138 Potassium 3.8 Chloride 108 H Carbon Dioxide 26 BUN 33 H Creatinine 0.98 Glucose 142 H Calcium 8.5 Liver Function 02/20/21 Range/Units 05:49 AST 13 L (15-37) U/L ALT 22 (12-78) U/L
[2021-02-20] MEDS: INSULIN HUMAN NPH SC SCH (20:42)
[2021-02-21] MEDS: ENOXAPARIN INJ 40 MG/0.4 ML SYR SQ SCH (05:18)
[2021-02-21 07:45] LABS: BUN Creatinine Ratio 27.9 (10-20); C Reactive Protein 1.94 mg/dl (0-0.29); Creatinine Clr Calc Pharmacy 68.8 ml/min; Est GFR (African American) 80.7; Est GFR (Non-African American) 69.7; Potassium 3.9 mmol/L (3.5-5.1)
[2021-02-21] MEDS: INSULIN HUMAN REGULAR SC SCH ×2 (08:00→12:25)
[2021-02-21] MEDS: guaiFENesin 600 MG TABCR PO SCH (08:03)
[2021-02-21] MEDS: dexAMETHasone 6 MG in SYRINGE 0 ML IV SCH (08:04)
--- NOTE | 2021-02-21 09:36 | XRay Report ---
XR chest 1V portable HISTORY: Covid positive. Pneumonia. COMPARISON: Chest 02/17/2021. FINDINGS: The heart is normal in size. No pleural effusions. No pneumothorax. Patchy peripheral airsp angi opacities are similar to the prior study. No evidence for pulmonary edema. IMPRESSION: Scattered patchy airspace opacities consistent with a viral pneumonia. This remains unchanged. ACT 112: Negative or not required by law. Electronically signed by: Thanh Hayden M.D. 02/21/2021 9:35 AM
[2021-02-21] MEDS: REMDESIVIR 100 MG in SODIUM CHLORIDE 0.9% 230 ML IV SCH (11:49)
[2021-02-21] MEDS: SODIUM CHLORIDE 0.9% 10ML FLUSH IV SCH (12:51)
--- NOTE | 2021-02-21 14:08 | Hospitalist Progress Note ---
Date of Service February 21, 2021 Assessment & Plan (1) Pneumonia due to COVID-19 virus: COVID-19 pneumonia Hypoxia secondary to above CTA: No pulmonary emboli identified. Moderate multifocal groundglass opacities within the lungs consistent with viral pneumonia. Moderate to marked coronary ar irma calcification. Received dexamethasone, remdesivir Day #4 Supplemental oxygen as needed Monitor LFTs, renal function Nebs, Lasix PRN Saturating well on room air 2 step: Did not qualify for oxygen (2) Diabetes mellitus type 2, insulin dependent: HbA1c 8.8 Continue insulin therapy while hospitalized Monitor BGs Glycemic pharmacist consulted DVT Px: SQ Lovenox CODE STATUS Full Admission and Anticipated Discharge Date Admission Date: February 17, 2021 Subjective Patient is seen and examined bedside No new complaints Saturating well on room air 2 Step : Didn't qualify for oxygen Intermittent minima cough Denies chest pain, Dyspnea, nausea, vomiting, abdominal pain, diarrhea Eager to get discharged Review of Systems Review of Systems: All systems reviewed & are unremarkable except as noted in HPI & below Physical Exam Physical Exam: Physical Exam: Vitals signs as noted above General Appearance:Moderately built and nourished, no apparent distress Head: normocephalic, Atraumatic Eyes: normal inspection, EOMI Neck: supple, Trachea midline Respiratory/Chest: Decreased breath sounds, CTA Cardiovascular: S1, S2, No murmur Abdomen/GI:Soft, Non tender, Bowel sounds present Extremities/Musculoskelatal:normal inspection, no edema Neurologic/Psych:AAOX3, grossly no focal neurological deficits Skin: normal color, warm Results & Data Results & Data ([facility]) Vital Signs (Past 12 Hours) Vital Signs Temp Pulse Pulse Pulse Pulse Pulse Resp 02/21/21 11:48 36.7 C 60 18 02/21/21 11:16 70 69 93 H 02/21/21 08:00 57 L 02/21/21 07:40 36.7 C 65 20 02/21/21 05:12 36.7 C 56 L 16 Resp Resp Resp BP Pulse Ox Pulse Ox Pulse Ox 02/21/21 11:48 133/83 94 02/21/21 11:16 18 16 16 92 94 02/21/21 08:00 02/21/21 07:40 148/78 H 91 02/21/21 05:12 137/76 92 Pulse Ox 02/21/21 11:48 02/21/21 11:16 94 02/21/21 08:00 02/21/21 07:40 02/21/21 05:12 Laboratory Results BMP 02/21/21 06:20 Sodium 138 Potassium 3.9 Chloride 107 Carbon Dioxide 25 BUN 30 H Creatinine 1.08 Glucose 131 H Calcium 8.0 L Liver Function 02/21/21 Range/Units 06:20 AST 18 (15-37) U/L ALT 30 (12-78) U/L
--- NOTE | 2021-02-21 14:11 | Pharmacy Report ---
Pharmacy Glycemic Short Note 2 - Date of Service February 21, 2021 - Glycemic Short BSG Results (Last 24 hours): 02/21/21 02/21/21 06:20 07:37 Glucose 131 H POC Glucose 130 H OUTPATIENT ANTIDIABETIC REGIMEN: * 30-40 units of insulin per day * Novolin R per scale * Novolin 70/30 12-15 units Q HS * A1c = 8.8 02/18/21 ASSESSMENT: 02/21 * Fasting BSG well controlled today at 130. Blood sugars have ranged from 130-2 99 mg/dL over the past 24 hours. Total insulin documented yesterday was 57 units (15 of which were NPH). Patient continues to manage his own glycemic control. Will continue to monitor for any continued severe hyperglycemia. * He remains on IV steroids and is ordered a diet. 02/19 * Patient used 10 units of NPH last evening. Today's regular insulin doses were 12 units and 15 units. BSGs have been in the 200s today. Patient continues to manage his own glycemic control. Will continue to monitor for any continued severe hyperglycemia. * He remains on IV steroids and is ordered a diet. 02/18 * Patient admitted to COVID19 unit for viral pneumonia * Patient states he is type 1 diabetic however documentation elsewhere in medical record states type 2 * He is currently receiving IV dexamethasone which will likely lead to greater insulin resistance * He is not willing to allow outside help with his insulin regimen at this time. Will follow the patient's BSGs with his own management and make attempts to intervene if he is struggling. He has his own glucometer as well as CGM. I ask that his BSGs be recorded on form NS-824 per policy. I also asked that RN observe and document doses of insulin given. * His own Novolin R were ID'd and relabeled. We have dispensed a vial of NPH for him to use at bedtime rather than 70/30 insulin as the rapid acting component isn't ideal for HS admin. PLAN FOR INPATIENT GLYCEMIC CONTROL: * Patient to manage his own glycemic control today using SQ Regular insulin ACHS and NPH at bedtime * RN to observe and chart all insulin doses administered. Patient to document doses given and BSGs recorded on NS-824 form * RN to check hospital Accuchek against patient's CGM at least once daily and report variation greater than 20% (this disqualifies ongoing use of CGM) * Pharmacy will touch base with RN periodically to gather info on patient's glycemic control PLAN FOR DISCHARGE: * to be determined.
--- NOTE | 2021-02-21 16:19 | Discharge Summary ---
Date of Service February 21, 2021 Admission HPI Per Admitting Provider CHIEF COMPLAINT: Shortness of breath and cough. HISTORY OF PRESENT ILLNESS: This is a 70-year-old male with past medical history significant for type 2 diabetes, on insulin, having COVID kind of symptoms since the last 10 days with a cough, short of breath, headaches, poor appetite, nausea, body aches, weakness, who came to the ER and he was COVID positive and his oxygen saturations were up and down in the low 90s. He was given 2 liters oxygen. So we were called for admission. Chest x-ray shows multifocal pneumonia. Currently resting comfortably and hemodynamically stable. Currently has some headache. Has some blurred visions. No earache, no runny nose, no sore throat. Denies any chest pain, no abdominal pain, no diarrhea. Admission Exam Per Admitting Provider PHYSICAL EXAMINATION: GENERAL: The patient is of moderate built, not in acute distress. VITAL SIGNS: Temperature 37.2, pulse 87, respiratory rate in 20s, blood pressure 147/84, oxygen 93%. HEENT: Pupils equal, round, and reactive to light. Oral mucosa moist. NECK: No JVD, no neck masses seen. CARDIOVASCULAR: S1, S2 heard. Regular rate and rhythm, no murmur, no gallop. RESPIRATORY SYSTEM: Normal AP diameter. No accessory muscle use. No wheezing, no crackles. ABDOMEN: Soft, bowel sounds present, nontender. No distention. CENTRAL NERVOUS SYSTEM: Cranial nerves II-XII grossly intact, nonfocal. EXTREMITIES: No edema, no erythema. Principal Diagnosis COVID-19 pneumonia Hypoxia Discharge Data Allergies Allergy/AdvReac Type Severity Reaction Status Date / Time No Known Allergies Allergy Verified 02/17/21 19:50 Consultations 02/17/21 22:12 ED Decision to Admit Stat Procedures Performed CTA: No pulmonary emboli identified. Moderate multifocal groundglass opacities within the lungs consistent with viral pneumonia. Moderate to marked coronary artery calcification. Ordered Studies 02/18/21 07:41 CT angio chest PE protocol Urgent Hospital Course (1) Pneumonia due to COVID-19 virus: COVID-19 pneumonia Hypoxia secondary to above CTA: No pulmonary emboli identified. Moderate multifocal groundglass opacities within the lungs consistent with viral pneumonia. Moderate to marked coronary artery calcification. Received dexamethasone, remdesivir Day #4 Supplemental oxygen as needed Monitor LFTs, renal function Nebs, Lasix PRN Saturating well on room air 2 step: Did not qualify for oxygen (2) Diabetes mellitus type 2, insulin dependent: HbA1c 8.8 Continue insulin therapy while hospitalized Monitor BGs Glycemic pharmacist consulted DVT Px: SQ Lovenox CODE STATUS Full Total Time Total Time Spent Total Time Spent (In Minutes): 40 minutes Total Time Includes: Examination of the Patient, Discharge Planning, Medication Reconciliation, Communication With Other Providers and Other Discharge Plan Discharge Items Patient Disposition: Home - Self-Care Reason For Visit: FEVER, SOB Discharge Diagnosis: COVID-19 pneumonia Hypoxia Activity: Per Instructions section Exercise/Sports: Gradually increase as tolerated Non-emergency contact: Primary Care Provider Call non-emergency contact if: you have any medication questions, your symptoms worsen, your pain is not controlled, your pain is concerning for you and you have a fever Follow-up/Referrals: Dariusz Cordova MD [Primary Care Provider] - (Date & Time 02/28/2021 10:00 AM Provider Dariusz Cordova MD [facility] PLEASE NOTE THAT THIS IS A TELEHEALTH VIDEO APPOINTMENT. PLEASE FOLLOW THE INSTRUCTIONS PROVIDED IN YOUR EMAIL. IF YOU HAVE ANY QUESTIONS REGARDING THIS APPOINTMENT, PLEASE CALL ) Diet: Carb Consistent or DM2 and Heart Healthy Addtl Attending Provider Instructions: Follow-up with your primary care physician Dr. Cordova on 02/28/2021 10:00 AM as scheduled Seek immediate medical attention if your symptoms reoccur or worsen Home Isolation COVID-19 Instructions The following information about Home Isolation is from the CDC Website: https://www.cdc.gov/coronavirus/2019-ncov/hcp/odqbdwlm-pmqilry-bulaqy.html Stay home except to get medical care People who are mildly ill with COVID-19 are able to isolate at home during their illness. You should restrict activities outside your home, except for getting medical care. Do not go to work, school, or public areas. Avoid using public transportation, ride-sharing, or taxis. Separate yourself from other people and animals in your home People: As much as possible, you should stay in a specific room and away from other people in your home. Also, you should use a separate bathroom, if available. Animals: You should restrict contact with pets and other animals while you are sick with COVID-19, just like you would around other people. Although there have not been reports of pets or other animals becoming sick with COVID-19, it is still recommended that people sick with COVID-19 limit contact with animals until more information is known about the virus. When possible, have another member of your household care for your animals while you are sick. If you are sick with COVID-19, avoid contact with your pet, including petting, snuggling, being kissed or licked, and sharing food. If you must care for your pet or be around animals while you are sick, wash your hands before and after you interact with pets and wear a face mask. Call ahead before visiting your doctor If you have a medical appointment, call the healthcare provider and tell them that you have or may have COVID-19. This will help the healthcare providers office take steps to keep other people from getting infected or exposed. Wear a face mask You should wear a face mask when you are around other people (e.g., sharing a room or vehicle) or pets and before you enter a healthcare providers office. If you are not able to wear a face mask (for example, because it causes trouble breathing), then people who live with you should not stay in the same room with you, or they should wear a face mask if they enter your room. Cover your coughs and sneezes Cover your mouth and nose with a tissue when you cough or sneeze. Throw used tissues in a lined trash can. Immediately wash your hands with soap and water for at least 20 seconds or, if soap and water are not available, clean your hands with an alcohol-based hand senior network security architect that contains at least 60% alcohol. Clean your hands often Wash your hands often with soap and water for at least 20 seconds, especially after blowing your nose, coughing, or sneezing; going to the bathroom; and before eating or preparing food. If soap and water are not readily available, use an alcohol-based hand senior network security architect with at least 60% alcohol, covering all surfaces of your hands and rubbing them together until they feel dry. Soap and water are the best option if hands are visibly dirty. Avoid touching your eyes, nose, and mouth with unwashed hands. Avoid sharing personal household items You should not share dishes, drinking glasses, cups, eating utensils, towels, or bedding with other people or pets in your home. After using these items, they should be washed thoroughly with soap and water. Clean all high-touch surfaces everyday High touch surfaces include counters, tabletops, doorknobs, bathroom fixtures, toilets, phones, keyboards, tablets, and bedside tables. Also, clean any surfaces that may have blood, stool, or body fluids on them. Use a household cleaning spray or wipe, according to the label instructions. Labels contain instructions for safe and effective use of the cleaning product including precautions you should take when applying the product, such as wearing gloves and making sure you have good ventilation during use of the product. Monitor your symptoms Seek prompt medical attention if your illness is worsening (e.g., difficulty breathing).Beforeseeking care, call your healthcare provider and tell them that you have, or are being evaluated for, COVID-19. Put on a face mask before you enter the facility. These steps will help the healthcare providers office to keep other people in the office or waiting room from getting infected or exposed. Ask your healthcare provider to call the local or state health department. Persons who are placed under active monitoring or facilitated self- monitoring should follow instructions provided by their local health department or occupational health professionals, as appropriate. When working with your local health department check their available hours. If you have a medical emergency and need to call 911, notify the dispatch personnel that you have, or are being evaluated for COVID-19. If possible, put on a face mask before emergency medical services arrive. Discontinuing home isolation Patients with confirmed COVID-19 should remain under home isolation precautions until the risk of secondary transmission to others is thought to be low. The decision to discontinue home isolation precautions should be made on a [id number]-zzrc basis, in consultation with healthcare providers and state and local health departments. Coronavirus disease 2019 (COVID-19) is a virus that causes a respiratory illness. It is caused by a coronavirus called 2019 novel coronavirus (2019- nCoV). There are many types of coronavirus. Coronaviruses are a very common cause of bronchitis. They may sometimes cause lung infection(pneumonia). Symptoms can range from mild to severe respiratory illness. These viruses are also foundin some animals. COVID-19 was first found in people in [facility], in late 2019. In 2020, several cases of COVID-19 have been confirmed in the [place] Public health officials are working to find the source. How the virus spreads is not yet fully known. It may be spread through droplets of fluid that a person coughs or sneezes into the air. It may be spread if you touch a surface with virus on it, such as a handle or object, and then touch your mouth. What are the symptoms of COVID-19? Some people have no symptoms or mild symptoms. Symptoms may appear 2 to 14 days after contact with the virus. Symptoms can include: Fever Coughing Trouble breathing What are possible complications from COVID-19? In many cases, this virus can cause infection (pneumonia) in both lungs. In some cases, this can cause . How is COVID-19 diagnosed? Your healthcare provider will ask about your symptoms. He or she will also ask about your recent travel and contact with sick people. Testing for the virus is only done through the CDC. If yourhealthcare provider thinks you may have COVID- 19, he or she will work with your local health department and the CDC on testing. Follow all instructions from your healthcare provider. COVID-19 is diagnosed by: Nasal and throat swab. A cotton-tipped swab is wiped inside your nose or throat. This is done to check for viruses in your nasal mucus. Sputum culture. A small sample of mucus coughed from your lungs (sputum) is collected if you have a cough. It is checked for the virus. How is COVID-19 treated? There is currently no medicine to treat the virus. Treatment is done to help your body while it fights the virus. This is known as supportive care. Supportive care may include: Pain medicine. These include acetaminophen and ibuprofen. They are used to help ease pain and reduce fever. Bed rest. This helps your body fight the illness. For severe illness, you may need to stay in the hospital. Care during severe illness may include: IV (intravenous) fluids.These are given through a vein to help keep your body hydrated. Oxygen. Supplemental oxygen or ventilation with a breathing machine (ventilator) may be given. This is done to keep enough oxygen in your body. Are you at risk for COVID-19? If youve been to a place where people have been sick with this virus, you are at risk for infection. You are at risk if you: Recently traveled to an affected area Had contact with a sick person who recently traveled to this area Had contact with a person who was diagnosed with COVID-19 How can COVID-19 be prevented? There is no vaccine yet. The best prevention is to not have contact with the virus. The CDC advises that people should not travel to areas where there are COVID-19 outbreaks right now for any reason that is not urgent. To help prevent spreading the infection, wash your hands often, or use an alcohol-basedhand senior network security architect. If you are in an area with COVID-19: Wash your hands often. Or use an alcohol-based hand senior network security architect often. Only touch your eyes, nose, or mouth with clean hands. Dont have contact with people who are sick. Follow local instructions about being in public. For example, you may be told to not use public transport for a period of time. Stay away from markets that have live or animals. Wash your hands after touching any animals. Don't touch animals that may be sick. Dont share eating or drinking tools with sick people. Dont kiss someone who is sick. Clean surfaces often with disinfectant. If you were in an area with COVID-19 in the last 14 days: Call your healthcare provider. He or she can talk with local health staff to see what action may be needed. Follow all instructions from your provider. Take your temperature every morning and evening for at least 14 days. This is to check for fever. Keep a record of the readings. Keep watch for symptoms of the virus. Tell your provider right away if you have symptoms. If you were in an area with COVID-19 and have a fever or other symptoms: Dont panic. Keep in mind that other illnesses can cause similar symptoms. Stay away from work, school, and public places. Limit physical contact with family members. Don't kiss anyone or share eating or drinking utensils. Clean surfaces you touch with disinfectant. This is to help prevent the virus from spreading. Call your healthcare provider. Explain that you have been exposed to COVID-19 and have symptoms. Do this before going to any hospital. Wait for instructions. Keep in mind that healthcare staff may wear protective equipment such as masks, gowns, gloves, and eye protection. You may be put in a separate room. This is to prevent the possible virus from spreading. Tell the healthcare staff about recent travel. This includes local travel on public transport. Staff may need to find other people you have been in contact with. Follow all instructions the healthcare staff give you. If you have been diagnosed with COVID-19 Follow all instructions from your healthcare provider. Dont leave your home, except to get medical care. Call your healthcare providers office before going. They can prepare and give you instructions. This will help prevent the virus from spreading. Dont go to work, school, or public areas. Dont use public transport or taxis. Stay away from other people in your home. Have them wear face masks around you. Dont share household items or food. Wear a face mask if you can. This includes at home or in a medical facility. Cover your face with a tissue when you cough or sneeze. Throw the tissue away. Wash your hands. Wash your hands often. Caregivers should: Follow all instructions from healthcare staff. Wear a face mask and protective clothing as advised. Wash hands often. Keep track of the sick persons symptoms. Clean surfaces, fabrics, and laundry thoroughly. Keep other people away from the sick person. When to call your healthcare provider Call your healthcare provider: If youve recently traveled and have symptoms If you have been diagnosed with COVID-19 and your symptoms are worse To learn more To find out more about COVID-19, visit the CDC website at www.cdc.gov/coronavirus/2019-ncov/index.html. 6382-7886 [employer]. [address] [place] [address], [place] [address]. All rights reserved. This information is not intended as a substitute for professional medical care. Always follow your healthcare professional's instructions. This information has been adapted from [employer] Pending Studies at Discharge: No Stand-Alone Forms: My [email or web address], Smoking Cessation Medications and DC Order Prescriptions: Continued Novolin 70-30 FlexPen U-100 100 unit/mL (70-30) Insulin Pen 10 - 15 unit SUBCUT AC RF: 0 Discharge Orders: Discharge Order (Routine); Ordered 02/21/21 Ordered By: Fernandez Hurley Admission Data Admit Date/Time: 02/17/21 23:54 Attending Provider: Fernandez Hurley Admit Provider: Jimi Montemayor Primary Care Provider: Dariusz Cordova Other Providers: Jimi Montemayor Other Interventions: Discharge Summary Assessment (RN) Last Done: 02/21/21 16:10
== END 2021-02-21 16:21 | disposition home or self-care (01) | DRG 177 ==
LOC: ED 18:17 → 2E 23:54 → SUATTDRO 23:54 → 2E 02-18 01:04

== ENCOUNTER 2022-06-27 12:36 | Inpatient (IN) ==
[2022-06-27 13:42] LABS: Influenza A virus by PCR Negative (Neg); Influenza B virus by PCR Negative (Neg); RSV by PCR Negative (Neg); SARS CoV2 RNA(COVID-19) InHosp NEGATIVE (Negative)
[2022-06-27] MEDS ORDERED: ACETAMINOPHEN 500 MG TAB PO STA (14:06)
[2022-06-27] MEDS ORDERED: SODIUM CHLORIDE 0.9% 1000ML 1,000 ML IV STA (14:06)
[2022-06-27 14:46] LABS: Basophils # (auto) 0.05 K/uL (0-0.2); Basophils % (auto) 0.6 %; Eosinophils # (auto) 0.04 K/uL (0-0.50); Eosinophils % (auto) 0.5 %; Hematocrit (blood only) 33.4 % (40.1-51.0); Hemoglobin 11.5 g/dl (14.0-18.0); Immature Granulocytes # (auto) 0.06 K/uL (0.00-0.02); Immature Granulocytes % (auto) 0.7 %; Lymphocytes # (auto) 1.29 K/uL (1.2-3.4); Lymphocytes % (auto) 14.6 %; Mean Corpuscular Hemoglobin 28.7 pg (25.0-34.0); Mean Corpuscular Hgb Conc 34.4 g/dL (32.0-36.0); Mean Corpuscular Volume 83.3 fL (80.0-100.0); Monocytes # (auto) 0.75 K/uL (0.24-0.82); Monocytes % (auto) 8.5 %; Neutrophils # (auto) 6.64 K/uL (1.4-6.5); Neutrophils % (auto) 75.1 %; Platelet Count 264 K/uL (130-400); RDW Coefficient of Variation 13.7 % (11.5-14.5); RDW Standard Deviation 41.8 fL (36.4-46.3); Red Blood Count 4.01 M/uL (4.63-6.08); White Blood Count 8.83 K/ul (4.8-10.8)
[2022-06-27 15:00] LABS: Appearance Urine Cloudy (Clear); Bacteria Urine Automated Negative (Negative); Bilirubin Urine Negative (Negative); Blood Urine Negative (Negative); Color Urine Yellow; Epithelial Cell Urine Auto 20-30 /lpf (0-5); Glucose Urine UA Negative (Negative); Ketones Urine Negative (Negative); Leukocyte Esterase Urine Negative (Negative); Nitrite Urine Negative (Negative); Protein Urine 1+ (Negative); RBC Urine Automated 0-4 /hpf (0-4); Specific Gravity Urine 1.018 (1.000-1.030); Urobilinogen Urine Negative (Negative)
[2022-06-27 15:09] LABS: Albumin Globulin Ratio 0.7 (0.9-2); Albumin Level 3.2 gm/dl (3.4-5.0); BUN Creatinine Ratio 15.2 (10-20); Bilirubin,Total 0.4 mg/dl (0.2-1.0); C Reactive Protein 17.54 mg/dl (0-0.5); Calcium 8.4 mg/dl (8.5-10.1); Creatinine Clr Calc Pharmacy 58.3 ml/min; Est GFR (African American) 67.2 ml/min; Globulin 4.4 gm/dl (2.5-4.0); Potassium 3.3 mmol/L (3.5-5.1); Total Protein 7.6 gm/dl (6.0-8.3)
[2022-06-27 15:11] LABS: Toxic Vacuolation 1+
[2022-06-27 15:19] LABS: Cast Urine Automated 0 /lpf (0-5)
[2022-06-27 15:28] LABS: Procalcitonin 0.46 ng/ml (0-0.5)
[2022-06-27 15:34] LABS: Lyme Ab IgM w/WB Rflx Negative (Negative)
[2022-06-27 15:38] LABS: Lyme Ab IgG w/WB Rflx Positive (Negative)
--- NOTE | 2022-06-27 16:02 | Emergency Department Note ---
Impression & Plan Febrile illness, acute, CRP elevated, Elevated erythrocyte sedimentation rate, Acute hyponatremia, Left lower lobe pneumonia ED Provider Note INFORMANT: Patient and ED PROVIDER(S): Anselmo Pepper MD CHIEF COMPLAINT: Fever PLAN: Disposition: Admitted Condition: Good Outpatient prescription management: none Referral: None MEDICAL DECISION MAKING: Patient present because of fever. Work-up was performed. His CBC showed an anemia but no significant leukocytosis. He has an elevated ESR and CRP. He does have a mild hyponatremia on chemistry panel. Lyme IgG is positive but the patient has a history of Lyme disease. IgM negative. Tick[place] labs are pending. The patient had a chest x-ray performed and this was concerning for left lower lobe pneumonia. He was treated with IV Rocephin and doxycycline orally. He was starting to require some supplemental oxygen and did well with nasal cannula. Given the course of symptoms, disease, and finding what we have here today further management in the hospital was deemed appropriate. Consultation with hospitalist service. Patient was evaluated in the ER for further management. Triage Nursing notes reviewed and agree them. Vital Signs: reviewed and remarkable for fever Differential diagnosis: Viral syndrome, otitis, pharyngitis, pneumonia, influenza, meningitis, urinary tract infection, sepsis, bacteremia, as well as other pathologies. Diagnostics interpreted by me: ECG: none Cardiac Monitoring: Cardiac monitoring ordered by me: The patient was placed on continuous cardiac monitoring and observed. It revealed a normal sinus rhythm at 79 beats per minute without ectopy or evidence of dysrhythmia. Imaging studies: Chest x-ray reveals left lower lobe pneumonia HPI: The patient is a 71year old male who presents to the Emergency Room with complaints of fever. This started a week ago and is intermittent. Patient sta rachel that he seems to have good days intermixed with recurrent fevers. The patient also notes the following associated symptoms, weakness, myalgias feeling generally ill and dizziness. The patient has found no 6 relieving factors. Current pain is rated as 6/10. notes that when he gets the fevers and chills he becomes very weak and disoriented. Pt denies LOC, headache,diaphoresis, visual changes, neck pain, chest pain, breathing difficulties, nausea, vomiting, abdominal pain, back pain, melena, hematochezia, urinary symptoms, numbness, lymphadenopathy, rash, or other complaints. ROS: See above HPI for pertinent positives & negatives. A total of 10 systems reviewed and were otherwise negative. PAST MEDICAL HISTORY:See Below , diabetes PAST SURGICAL HISTORY:See Below, FAMILY HISTORY:See Below SOCIAL HISTORY:See Below, HOME MEDICATIONS:See Below ALLERGIES:See Below VITALS:See Below PHYSICAL EXAMINATION: GENERAL: Awake, tired-appearing, in no distress HENT: Normocephalic, atraumatic. Oropharynx unremarkable. EYES: Normal conjunctiva. Sclera non-icteric. NECK: Inspection normal. Non-tender. Supple. No nuchal rigidity. FROM. No masses. RESPIRATORY: Clear to auscultation. No wheezes. No rales. Normal respiratory effort. CARDIAC: Normal rate. Normal rhythm. No murmurs. No rubs. Extremities warm and well perfused. Pulses equal. No JVD. GI: Soft, non-distended. No tenderness to palpation. No rebound or guarding. No masses. RECTAL: Deferred. MUSCULOSKELETAL: Atraumatic. Chest examination reveals no tenderness. The back is symmetrical on inspection without obvious abnormality. There is no CVA tenderness to palpation. No joint edema. LOWER EXTREMITIES: Calves are equal size bilaterally and non-tender. No edema. No discoloration. NEURO: Normal sensorium. No sensory or motor deficits noted. SKIN: No rash or jaundice noted. Anselmo Pepper MD Past Med/Surg History Medical History Type 2 diabetes mellitus Social History Smoking Status: Never smoker Hx Alcohol Use: No Hx Substance Use: No Preferred Language: Ghanaian Communication Ability: Effective Costume Design Teacher Required: No Beliefs That Will Affect Care: None Current Living Situation: Spouse Feels Safe at Home: Yes Assistive Devices: None Allergies Allergies Allergy/AdvReac Type Severity Reaction Status Date / Time No Known Allergies Allergy Verified 02/17/21 19:50 Home Meds Home Medications Medication Instructions Recorded Confirmed insulin NPH-regular 70-30 U-100 10 - 15 unit subcut AC 02/17/21 02/17/21 insulin 100 unit/mL subcutaneous pen (Novolin 70-30 FlexPen U-100 Insulin) Results & Data (ED) Vital Signs Vital Signs - 24 hr 06/27/22 12:41 06/27/22 12:59 08/13/22 13:31 Temperature 37.7 C H Temperature Source Oral Pulse Rate 95 H Pulse Rate [Apical] 83 86 Pulse Rhythm Regular Pulse Strength Normal Respiratory Rate 16 18 18 Respiratory Effort / Characteristics Non-Labored Spontaneous Non-Labored Spontaneous Non-Labored Spontaneous Respiratory Depth Normal Normal Normal Respiratory Pattern Regular Blood Pressure 127/87 Blood Pressure [Right Arm] 152/91 H 140/80 Blood Pressure Mean 100 Blood Pressure Mean [Right Arm] 111 100 Blood Pressure Position Sitting Blood Pressure Position [Right Arm] Lying Lying Pulse Oximetry 94 95 94 Oxygen Delivery Method Room Air Room Air Room Air Sepsis Recent Fever Within 48 Hours No Sepsis New/Unexplained Change in Mental Status No Sepsis Action Taken by Nursing No Action Required 06/27/22 14:05 Temperature Temperature Source Pulse Rate Pulse Rate [Apical] 80 Pulse Rhythm Pulse Strength Respiratory Rate 18 Respiratory Effort / Characteristics Non-Labored Spontaneous Respiratory Depth Normal Respiratory Pattern Blood Pressure Blood Pressure [Right Arm] 148/91 H Blood Pressure Mean Blood Pressure Mean [Right Arm] 110 Blood Pressure Position Blood Pressure Position [Right Arm] Pulse Oximetry 94 Oxygen Delivery Method Room Air Sepsis Recent Fever Within 48 Hours Sepsis New/Unexplained Change in Mental Status Sepsis Action Taken by Nursing Laboratory Data Result diagrams: 06/27/22 14:28 06/27/22 14:28 Lab Results 06/27/22 06/27/22 06/27/22 Range/Units 12:57 14:28 14:28 WBC 8.83 (4.8-10.8) K/ul RBC 4.01 L (4.63-6.08) M/uL Hgb 11.5 L (14.0-18.0) g/dl Hct 33.4 L (40.1-51.0) % MCV 83.3 (80.0-100.0) fL MCH 28.7 (25.0-34.0) pg MCHC 34.4 (32.0-36.0) g/dL RDW Std Deviation 41.8 (36.4-46.3) fL RDW Coeff of David 13.7 (11.5-14.5) % Plt Count 264 (130-400) K/uL MPV 9.0 L (9.4-12.4) fL Immature Gran % (Auto) 0.7 % Neut % (Auto) 75.1 % Lymph % (Auto) 14.6 % [place] % (Auto) 8.5 % Eos % (Auto) 0.5 % Baso % (Auto) 0.6 % Neut # (Auto) 6.64 H (1.4-6.5) K/uL Lymph # (Auto) 1.29 (1.2-3.4) K/uL [place] # (Auto) 0.75 (0.24-0.82) K/uL Eos # (Auto) 0.04 (0-0.50) K/uL Baso # (Auto) 0.05 (0-0.2) K/uL Immature Gran # (Auto) 0.06 H (0.00-0.02) K/uL Toxic Vacuolation 1+ ESR (0-20) mm/hr Sodium (136-145) mmol/L Potassium (3.5-5.1) mmol/L Chloride (98-107) mmol/L Carbon Dioxide (21-32) mmol/L Anion Gap (3-11) BUN (6-23) mg/dl Creatinine (0.6-1.4) mg/dl Est Cr Clr Drug Dosing ml/min Est GFR ( Amer) ml/min Est GFR (Non-Af Amer) ml/min BUN/Creatinine Ratio (10-20) Glucose (70-99(Fasting)) mg/dl Lactate (0.4-2.0) mmol/L Calcium (8.5-10.1) mg/dl Total Bilirubin (0.2-1.0) mg/dl AST (13-39) U/L ALT (7-52) U/L Alkaline Phosphatase (34-104) U/L C-Reactive Protein (0-0.5) mg/dl Total Protein (6.0-8.3) gm/dl Albumin (3.4-5.0) gm/dl Globulin (2.5-4.0) gm/dl Albumin/Globulin Ratio (0.9-2) Procalcitonin 0.46 (0-0.5) ng/ml Urine Color Urine Appearance (Clear) Urine pH (4.5-7.5) Ur Specific [place] (1.000-1.030) Urine Protein (Negative) Urine Glucose (UA) (Negative) Urine Ketones (Negative) Urine Blood (Negative) Urine Nitrite (Negative) Urine Bilirubin (Negative) Urine Urobilinogen (Negative) Ur Leukocyte Esterase (Negative) Urine WBC (Auto) (0-5) /hpf Urine RBC (Auto) (0-4) /hpf U Hyaline Cast (Auto) (0-5) /lpf U Epithel Cells (Auto) (0-5) /lpf Urine Bacteria (Auto) (Negative) Granular Casts (0) /lpf Urine Yeast Anaplasma Smear See Comment Babesia Smear See Comment Lyme Disease IgG Ab Positive A (Negative) Lyme Disease IgM Ab Negative (Negative) SARS-CoV-2 (PCR) NEGATIVE (Negative) Influenza Type A (PCR) Negative (Neg) Influenza Type B (PCR) Negative (Neg) RSV (RT-PCR) Negative (Neg) 06/27/22 06/27/22 06/27/22 Range/Units 14:28 14:28 14:28 WBC (4.8-10.8) K/ul RBC (4.63-6.08) M/uL Hgb (14.0-18.0) g/dl Hct (40.1-51.0) % MCV (80.0-100.0) fL MCH (25.0-34.0) pg MCHC (32.0-36.0) g/dL RDW Std Deviation (36.4-46.3) fL RDW Coeff of David (11.5-14.5) % Plt Count (130-400) K/uL MPV (9.4-12.4) fL Immature Gran % (Auto) % Neut % (Auto) % Lymph % (Auto) % [place] % (Auto) % Eos % (Auto) % Baso % (Auto) % Neut # (Auto) (1.4-6.5) K/uL Lymph # (Auto) (1.2-3.4) K/uL [place] # (Auto) (0.24-0.82) K/uL Eos # (Auto) (0-0.50) K/uL Baso # (Auto) (0-0.2) K/uL Immature Gran # (Auto) (0.00-0.02) K/uL Toxic Vacuolation ESR 82 H (0-20) mm/hr Sodium 129 L (136-145) mmol/L Potassium 3.3 L (3.5-5.1) mmol/L Chloride 96 L (98-107) mmol/L Carbon Dioxide 25 (21-32) mmol/L Anion Gap 8 (3-11) BUN 19 (6-23) mg/dl Creatinine 1.25 (0.6-1.4) mg/dl Est Cr Clr Drug Dosing 58.3 ml/min Est GFR ( Amer) 67.2 ml/min Est GFR (Non-Af Amer) 58.0 ml/min BUN/Creatinine Ratio 15.2 (10-20) Glucose 80 (70-99(Fasting)) mg/dl Lactate 0.9 (0.4-2.0) mmol/L Calcium 8.4 L (8.5-10.1) mg/dl Total Bilirubin 0.4 (0.2-1.0) mg/dl AST 30 (13-39) U/L ALT 33 (7-52) U/L Alkaline Phosphatase 76 (34-104) U/L C-Reactive Protein 17.54 H (0-0.5) mg/dl Total Protein 7.6 (6.0-8.3) gm/dl Albumin 3.2 L (3.4-5.0) gm/dl Globulin 4.4 H (2.5-4.0) gm/dl Albumin/Globulin Ratio 0.7 L (0.9-2) Procalcitonin (0-0.5) ng/ml Urine Color Urine Appearance (Clear) Urine pH (4.5-7.5) Ur Specific [place] (1.000-1.030) Urine Protein (Negative) Urine Glucose (UA) (Negative) Urine Ketones (Negative) Urine Blood (Negative) Urine Nitrite (Negative) Urine Bilirubin (Negative) Urine Urobilinogen (Negative) Ur Leukocyte Esterase (Negative) Urine WBC (Auto) (0-5) /hpf Urine RBC (Auto) (0-4) /hpf U Hyaline Cast (Auto) (0-5) /lpf U Epithel Cells (Auto) (0-5) /lpf Urine Bacteria (Auto) (Negative) Granular Casts (0) /lpf Urine Yeast Anaplasma Smear Babesia Smear Lyme Disease IgG Ab (Negative) Lyme Disease IgM Ab (Negative) SARS-CoV-2 (PCR) (Negative) Influenza Type A (PCR) (Neg) Influenza Type B (PCR) (Neg) RSV (RT-PCR) (Neg) 06/27/22 Range/Units 14:39 WBC (4.8-10.8) K/ul RBC (4.63-6.08) M/uL Hgb (14.0-18.0) g/dl Hct (40.1-51.0) % MCV (80.0-100.0) fL MCH (25.0-34.0) pg MCHC (32.0-36.0) g/dL RDW Std Deviation (36.4-46.3) fL RDW Coeff of David (11.5-14.5) % Plt Count (130-400) K/uL MPV (9.4-12.4) fL Immature Gran % (Auto) % Neut % (Auto) % Lymph % (Auto) % [place] % (Auto) % Eos % (Auto) % Baso % (Auto) % Neut # (Auto) (1.4-6.5) K/uL Lymph # (Auto) (1.2-3.4) K/uL [place] # (Auto) (0.24-0.82) K/uL Eos # (Auto) (0-0.50) K/uL Baso # (Auto) (0-0.2) K/uL Immature Gran # (Auto) (0.00-0.02) K/uL Toxic Vacuolation ESR (0-20) mm/hr Sodium (136-145) mmol/L Potassium (3.5-5.1) mmol/L Chloride (98-107) mmol/L Carbon Dioxide (21-32) mmol/L Anion Gap (3-11) BUN (6-23) mg/dl Creatinine (0.6-1.4) mg/dl Est Cr Clr Drug Dosing ml/min Est GFR ( Amer) ml/min Est GFR (Non-Af Amer) ml/min BUN/Creatinine Ratio (10-20) Glucose (70-99(Fasting)) mg/dl Lactate (0.4-2.0) mmol/L Calcium (8.5-10.1) mg/dl Total Bilirubin (0.2-1.0) mg/dl AST (13-39) U/L ALT (7-52) U/L Alkaline Phosphatase (34-104) U/L C-Reactive Protein (0-0.5) mg/dl Total Protein (6.0-8.3) gm/dl Albumin (3.4-5.0) gm/dl Globulin (2.5-4.0) gm/dl Albumin/Globulin Ratio (0.9-2) Procalcitonin (0-0.5) ng/ml Urine Color Yellow Urine Appearance Cloudy A (Clear) Urine pH 5.0 (4.5-7.5) Ur Specific [place] 1.018 (1.000-1.030) Urine Protein 1+ H (Negative) Urine Glucose (UA) Negative (Negative) Urine Ketones Negative (Negative) Urine Blood Negative (Negative) Urine Nitrite Negative (Negative) Urine Bilirubin Negative (Negative) Urine Urobilinogen Negative (Negative) Ur Leukocyte Esterase Negative (Negative) Urine WBC (Auto) 1-5 (0-5) /hpf Urine RBC (Auto) 0-4 (0-4) /hpf U Hyaline Cast (Auto) 0 (0-5) /lpf U Epithel Cells (Auto) 20-30 H (0-5) /lpf Urine Bacteria (Auto) Negative (Negative) Granular Casts 10-20 H (0) /lpf Urine Yeast Not Reportable Anaplasma Smear Babesia Smear Lyme Disease IgG Ab (Negative) Lyme Disease IgM Ab (Negative) SARS-CoV-2 (PCR) (Negative) Influenza Type A (PCR) (Neg) Influenza Type B (PCR) (Neg) RSV (RT-PCR) (Neg) Administered Medications Discontinued Medications Acetaminophen (Acetaminophen 500 Mg Tab) 1,000 mg PO ONE STA Stop: 06/27/22 14:07 Last Admin: 06/27/22 14:43 Dose: 1,000 mg Documented By: GODWIN Doxycycline Hyclate (Doxycycline Hyclate 100 Mg Cap) 100 mg PO NOW STA Stop: 06/27/22 16:22 Last Admin: 06/27/22 16:31 Dose: 100 mg Documented By: RIC Sodium Chloride (Nss 1000ml) 1,000 mls @ 999 mls/hr IV .Q1H1M STA Stop: 06/27/22 15:06 Last Infusion: 06/27/22 15:49 Dose: 0 mls/hr Documented By: Admin: 06/27/22 14:43 Dose: 999 mls/hr Documented By: GODWIN Ceftriaxone Sodium (Rocephin) 2,000 mg in 70 mls @ 140 mls/hr IV NOW STA Stop: 06/27/22 16:50 Last Infusion: 06/27/22 17:04 Dose: 0 mls/hr Documented By: Admin: 06/27/22 16:31 Dose: 140 mls/hr Documented By: RIC Imaging Data Radiologist's Impression: Chest X-Ray 06/27/22 15:30 XR chest 1V portable CLINICAL HISTORY: fever TECHNIQUE: Single frontal radiograph of the chest was obtained. Comparison: Comparison is made to chest radiograph 02/21/2021 FINDINGS: No lines and tubes are seen. The cardiomediastinal silhouette is normal. Airspace opacities are seen most prominent in the left lower lobe. No evidence of pleural effusion or pneumothorax. IMPRESSION: Left lower lobe airspace opacities may represent atelectasis, pneumonia, and/or aspiration. ACT 112: Negative or not required by law. Electronically signed by: Ti Carrera M.D. 06/27/2022 4:35 PM Discharge Plan Visit Data Chief Complaint: Fever Stated Complaint: FEVER ED Provider: Anselmo Pepper Discharge Problem: Febrile illness, acute, CRP elevated, Elevated erythrocyte sedimentation rate, Acute hyponatremia, Left lower lobe pneumonia Forms Stand Alone Forms: My [facility] Prescriptions Prescriptions: No Action Novolin 70-30 FlexPen U-100 100 unit/mL (70-30) Insulin Pen 10 - 15 unit SUBCUT AC Rx Instructions: DEPENDS ON BSG--TOTAL FOR 24 HOURS 30-40 UNITS. Referrals Referrals: Dariusz Cordova MD [Primary Care Provider] -
[2022-06-27] MEDS ORDERED: cefTRIAXone SODIUM 2,000 MG/70 ML BAG IV STA (16:21)
[2022-06-27] MEDS ORDERED: DOXYCYCLINE HYCLATE 100 MG CAP PO STA (16:21)
--- NOTE | 2022-06-27 16:36 | XRay Report ---
XR chest 1V portable CLINICAL HISTORY: fever TECHNIQUE: Single frontal radiograph of the chest was obtained. Comparison: Comparison is made to chest radiograph 02/21/2021 FINDINGS: No lines and tubes are seen. The cardiomediastinal silhouette is normal. Airspace opacities are seen most prominent in the left lower lobe. No evidence of pleural effusion or pneumothorax. IMPRESSION: Left lower lobe airspace opacities may represent atelectasis, pneumonia, and/or aspiration. ACT 112: Negative or not required by law. Electronically signed by: Ti Carrera M.D. 06/27/2022 4:35 PM
--- NOTE | 2022-06-27 17:38 | History & Physical Report ---
Date of Service June 27, 2022 Assessment & Plan (1) Left lower lobe pneumonia: Plan: 71 y/o male with DM 2 on insulin presenting with fever and weakness x few days. LEFT LOWER LOBE PNEUMONIA check CT chest Sputum culture Blood culture Urine Legionella Ceftriaxone + Doxycycline Incentive spirometry, Mucinex MILD HYPONATREMIA likely hypovolemic, SIADH Na 129 repeat Na tomorrow serum Osm, Urine Osm and Na MILD HYPOKALEMIA PO K POSSIBLE LYME no rashes, no recent Tick bites IgG (+) Western Blot pending on Ceftriaxone DM 2 usually on Lantus 20 units HS, Novolog 10 units TID Lantus 5 units BID, ISS MECHANICAL FALL CT head no other pain UTI? Urine culture DVT Prophylaxis Lovenox if CT head negative for bleed Full code per patient Disposition anticipate d/c home when medically stable plan of care discussed with patient and his in detail and at length all questions answered they are understanding, agreeable, comfortable with the plan of care History of Present Illness Chief Complaint: fever, weakness x few days Primary Care Provider: Dariusz Cordova MD 71 y/o male with DM 2 on insulin presenting with fever and weakness x few days. Patient travelled recently to [place] and upon returning to [place] last Wednesday, patient started to have weakness associated with shaking chills. He also had night sweats, poor appetite and intermittent confusion as per . Yesterday, he was so weak that he fell while walking to the bathroom. At the ER, patient was placed on 2 L o2 via NC. CXR showed L lower lobe pneumonia. On exam, patient is oriented x 3, appears somewhat weak, not in distress. No other symptoms. Allergies Allergy/AdvReac Type Severity Reaction Status Date / Time No Known Allergies Allergy Verified 06/27/22 17:33 Home Medications Medication Instructions Recorded Confirmed Type insulin aspart U-100 100 unit/mL 12 - 18 sliding scale dose subcut 06/27/22 06/27/22 History (3 mL) subcutaneous pen (Novolog TIDM Flexpen U-100 Insulin aspart) insulin glargine 100 unit/mL (3 18 unit subcut PM 06/27/22 06/27/22 History mL) subcutaneous pen (Lantus Solostar U-100 Insulin) Past Med/Surg History Medical History Type 2 diabetes mellitus Social History Smoking Status: Never smoker Do You Dip or Chew Tobacco: Yes (quit 10 years ago); Hx Alcohol Use: No Hx Substance Use: No Preferred Language: Comoran Communication Ability: Effective Boilers Inspector Required: No Beliefs That Will Affect Care: None Current Living Situation: Spouse Other Information That Helps Us Care for You: No Feels Safe at Home: Yes Safety Concerns: Feels Safe At This Time Assistive Devices: Glasses Review of Systems Review of Systems: all noted and negative except for above Physical Exam Physical Exam: General- oriented x 3, not in distress, speaks in sentences with no effort or accessory muscle use Head- atraumatic Eyes- PERRL, EOMI, anicteric ENT- oropharynx clear Neck- supple, no JVD, no adenopathy, no thyromegaly; carotids +2/2, no bruits appreciated Lungs- (+) crackles L lower lobe no wheezing Heart- normal rate, regular rhythm; no murmur, no gallop, no rub appreciated Abdomen- normal bowel sounds, nondistended, soft, nontender, no masses or hepatosplenomegaly Extremities- no pretibial edema, no calf tenderness; peripheral pulses intact Neuro- alert, oriented x 3; CN 2-12 grossly intact; motor 5/5 bilaterally;sensation 100% on all extremities; no other gross focal neurologic deficits Skin- warm & dry Results & Data Results & Data ([facility]) Vital Signs (Past 12 Hours) Vital Signs Temp Pulse Pulse Resp BP BP Pulse Ox 06/27/22 14:05 80 18 148/91 H 94 06/27/22 13:31 86 18 140/80 94 06/27/22 12:59 83 18 152/91 H 95 06/27/22 12:41 37.7 C H 95 H 16 127/87 94 O2 Del Method 06/27/22 14:05 Room Air 06/27/22 13:31 Room Air 06/27/22 12:59 Room Air 06/27/22 12:41 Room Air all noted and reviewed including below Code Status & VTE Plan VTE Prophylaxis Plan VTE Prophylaxis will be ordered: Yes
--- NOTE | 2022-06-27 18:30 | CT Scan Report ---
CT head/brain wo con CLINICAL HISTORY: s/p fall, headache Technique: Contiguous axial CT images of the head were acquired from the base of the skull to the shaniqua pippa without intravenous contrast administration. Images were viewed in brain, subdural and bone [facility]. Automated dose lowering techniques and/or adjustment according to patient size were utilized for this exam. Comparison: None available at the time of this dictation. Findings: The ventricles, basal cisterns, and cerebral sulci are normal. There is no acute intracranial hemorrh age or evidence of acute territorial infarction. Neither mass effect, shift of the midline structures , nor abnormal extra-axial fluid collections are shown. Imaged portions of the paranasal sinuses and mastoid air cells are clear. The orbits appear normal. There are no acute fractures of the calvaria or scalp swelling. Impression: No acute intracranial hemorrhage, no evidence of acute territorial infarction or other acute intracra nial disease process. ACT 112: Negative or not required by law. Electronically signed by: Ti Carrera M.D. 06/27/2022 6:29 PM
--- NOTE | 2022-06-27 18:38 | CT Scan Report ---
CT chest diagnostic wo con CLINICAL HISTORY: pneumonia, r/o effusion TECHNIQUE: Multidetector row helical CT of the chest was performed. Coronal and sagittal reformations were obtained. Automated dose lowering techniques and/or adjustment according to patient size were u tilized for this exam. Comparison: Comparison is made to CT chest 02/18/2021 FINDINGS: Lungs and pleura: Consolidative opacities are seen in the left lung. Heart and pericardium: Heart size is normal. No pericardial effusion. Vessels: Moderate atherosclerotic changes in the aorta and coronary arteries. Within limits of a nond edicated exam, no pulmonary embolus is seen. Mediastinum and aaron: Unremarkable. Chest wall and lower neck: Unremarkable. Abdomen: A hiatal hernia is seen. Bones: Degenerative changes in the thoracic spine. IMPRESSION: Multifocal consolidative opacities compatible with pneumonia. ACT 112: Negative or not required by law. Electronically signed by: Ti Crarera M.D. 06/27/2022 6:35 PM
[2022-06-27] MEDS ORDERED: DEXTROSE 50% 50 ML SYRINGE IV PRN (19:58)
[2022-06-27] MEDS ORDERED: POTASSIUM CHLORIDE CRTAB 20 MEQ TABCR PO STA (19:58)
[2022-06-27] MEDS ORDERED: GLUCAGON FOR INJ 1 MG VIAL SQ PRN (19:58)
[2022-06-27] MEDS ORDERED: GLUCOSE 10 TAB/TUBE PO PRN (19:58)
[2022-06-27] MEDS ORDERED: CARBOHYDRATES FOR HYPOGLYCEMIA PO PRN (19:58)
[2022-06-27] MEDS ORDERED: GLUCOSE 40% GEL 15 GM TUBE PO PRN (19:58)
[2022-06-27] MEDS ORDERED: PHARMACY GLYCEMIC MGMT CONSULT PRN (19:58)
[2022-06-27] MEDS ORDERED: LANTUS PER UNIT CHARGE SQ SCH (21:00)
[2022-06-27] MEDS ORDERED: LANTUS PER UNIT CHARGE SQ ONE (21:00)
[2022-06-27] MEDS: INSULIN ASPART PER UNIT SC SCH (21:26)
[2022-06-27] MEDS: guaiFENesin 600 MG TABCR PO SCH (21:40)
[2022-06-27] MEDS: ACETAMINOPHEN 325 MG TAB PO PRN (23:17)
[2022-06-28] MEDS ORDERED: INSULIN ASPART PER UNIT SC ONE (02:00)
[2022-06-28 06:26] LABS: Basophils # (auto) 0.05 K/uL (0-0.2); Basophils % (auto) 0.6 %; Eosinophils % (auto) 1.3 %; Hematocrit (blood only) 33.1 % (40.1-51.0); Hemoglobin 11.1 g/dl (14.0-18.0); Immature Granulocytes # (auto) 0.08 K/uL (0.00-0.02); Lymphocytes # (auto) 1.34 K/uL (1.2-3.4); Lymphocytes % (auto) 17.2 %; Mean Corpuscular Hemoglobin 28.6 pg (25.0-34.0); Mean Corpuscular Hgb Conc 33.5 g/dL (32.0-36.0); Mean Corpuscular Volume 85.3 fL (80.0-100.0); Monocytes # (auto) 0.78 K/uL (0.24-0.82); Neutrophils # (auto) 5.45 K/uL (1.4-6.5); Neutrophils % (auto) 69.9 %; Platelet Count 285 K/uL (130-400); RDW Coefficient of Variation 13.7 % (11.5-14.5); Red Blood Count 3.88 M/uL (4.63-6.08)
[2022-06-28 06:43] LABS: BUN Creatinine Ratio 14.6 (10-20); Calcium 8.3 mg/dl (8.5-10.1); Creatinine Clr Calc Pharmacy 59.1 ml/min; Est GFR (African American) 64.1 ml/min; Est GFR (Non-African American) 55.3 ml/min; Potassium 3.8 mmol/L (3.5-5.1)
[2022-06-28] MEDS: INSULIN ASPART PER UNIT SC SCH ×4 (08:22→21:42)
[2022-06-28] MEDS: LANTUS PER UNIT CHARGE SQ SCH ×2 (08:23→21:41)
[2022-06-28] MEDS: DOXYCYCLINE HYCLATE 100 MG CAP PO SCH ×2 (08:23→21:45)
[2022-06-28] MEDS: guaiFENesin 600 MG TABCR PO SCH ×2 (08:24→21:45)
--- NOTE | 2022-06-28 14:47 | Hospitalist Progress Note ---
Date of Service June 28, 2022 Assessment & Plan (1) Left lower lobe pneumonia: Plan: 71 y/o male with DM 2 on insulin presenting with fever and weakness x few days. Likely related to bacterial pneumonia. Improved on current abx therapy. Cont ceftriaxone and doxycycline. Add oxygen if hypoxia develops. Tylenol as needed for fever. Awaiting culture results and rickettsial panel. (2) Acute hyponatremia: Plan: likely related to hypovolemia, improved 129 to 131 with treatment and some IVF. cont IVF now overnight and repeat BMP in am. Urine studies not performed and don't think they are needed at this time. (3) Diabetes mellitus type 2, insulin dependent: Plan: At goal, cont basal bolus insulin. (4) Hypokalemia: Plan: Likely related to poor PO intake from being sick for several days. Replaced. (5) Falls: Plan: Probably related to infection. CT head was negative and no focal neurologic deficits are present on exam. Patient is oriented and memory is intact, he just doesn't feel well. PT/OT prior to discharge. (6) DVT prophylaxis: Plan: Lovenox Full Code Dispo-to home when improved Kristal Boucher DO [facility] Hospitalist Admission and Anticipated Discharge Date Admission Date: June 27, 2022 Subjective 71 yo M with recent travel to [place] for flyfishing trip presents with fevers, chills and malaise. Reported GI symptoms that have resolved Still feeling cold but not SOB and overall improved since admission tremendously. Denies cough Denies tick bites and no fever overnight. Tolerating PO Review of Systems Review of Systems: All systems were reviewed and negative except as indicated in subjective above. Physical Exam Physical Exam: CONSTITUTIONAL: WNWD, vitals as above, generally appears fatigued and ill but NAD. EYES: normal conjunctivae, no scleral icterus ENT: external ear and nose normal, MMM NECK: trachea midline RESPIRATORY: clear to auscultation bilaterally, no crackles, rales or wheezes, normal respiratory effort CARDIOVASCULAR: regular rate and rhythm, S1 and 2 heard without murmurs, gallops or rubs, no JVD, no peripheral edema CHEST: inspection of chest was normal GASTROINTESTINAL: soft, nontender, ND, no guarding MUSCULOSKELETAL: strength 5/5 throughout, head is normocephalic and atraumatic, neck supple, normal palpation of chest wall without tenderness SKIN: warm and dry NEUROLOGIC: CN 2-12 grossly intact, no sensory deficit, normal cognition, normal speech, no tremor PSYCHIATRIC: alert cooperative and oriented to person, place and time. Euthymic mood, makes good eye contact, language grossly intact, recent and remote memory grossly intact. Results & Data Results & Data ([facility]) Vital Signs (Past 12 Hours) Vital Signs Temp Pulse Pulse Resp BP Pulse Ox O2 Del Method 06/28/22 10:55 37.5 C 92 H 18 148/73 H 90 Room Air 06/28/22 10:27 91 H 06/28/22 08:14 37.2 C 95 H 20 164/84 H 91 Room Air 06/28/22 07:23 Room Air 06/28/22 02:56 37.2 C 93 H 18 149/79 H 95 Room Air Laboratory Results Short CBC 06/27/22 06/28/22 Range/Units 14:28 05:33 WBC 8.83 7.80 (4.8-10.8) K/ul Hgb 11.5 L 11.1 L (14.0-18.0) g/dl Hct 33.4 L 33.1 L (40.1-51.0) % Plt Count 264 285 (130-400) K/uL BMP 06/27/22 06/28/22 14:28 05:33 Sodium 129 L 131 L Potassium 3.3 L 3.8 Chloride 96 L 99 Carbon Dioxide 25 26 BUN 19 19 Creatinine 1.25 1.30 Glucose 80 87 Calcium 8.4 L 8.3 L Liver Function 06/27/22 Range/Units 14:28 Total Bilirubin 0.4 (0.2-1.0) mg/dl AST 30 (13-39) U/L ALT 33 (7-52) U/L Alkaline Phosphatase 76 (34-104) U/L Albumin 3.2 L (3.4-5.0) gm/dl Urine 06/27/22 Range/Units 14:39 Urine Color Yellow Urine Appearance Cloudy A (Clear) Urine pH 5.0 (4.5-7.5) Ur Specific [place] 1.018 (1.000-1.030) Urine Protein 1+ H (Negative) Urine Glucose (UA) Negative (Negative) Medications Administered Current Inpatient Medications Acetaminophen (Acetaminophen 325 Mg Tab) 650 mg PO Q4H PRN PRN Reason: Pain or Fever Stop: 07/27/22 19:57 Last Admin: 06/27/22 23:17 Dose: 650 mg Dextrose (Dextrose 50% 50 Ml Syringe) 25 - 50 ml IV UD PRN; Protocol PRN Reason: Hypoglycemia Protocol Stop: 07/27/22 19:57 Doxycycline Hyclate (Doxycycline Hyclate 100 Mg Cap) 100 mg PO BID HERI Stop: 07/04/22 08:59 Last Admin: 06/28/22 08:23 Dose: 100 mg Glucagon (Glucagon For Inj 1 Mg Vial) 1 mg SQ UD PRN; Protocol PRN Reason: Hypoglycemia Protocol Stop: 07/27/22 19:57 Glucose (Glucose 40% Gel 15 Gm Tube) 15 - 30 gm PO UD PRN; Protocol PRN Reason: Hypoglycemia Protocol Stop: 07/27/22 19:57 Glucose (Glucose 10 Tab/Tube) 4 - 8 tab PO UD PRN; Protocol PRN Reason: Hypoglycemia Treatment Stop: 07/27/22 19:57 Guaifenesin (Guaifenesin 600 Mg Tabcr) 1,200 mg PO Q12 HERI Stop: 07/27/22 20:59 Last Admin: 06/28/22 08:24 Dose: 1,200 mg Ceftriaxone Sodium 2,000 mg/ (Dextrose) 70 mls @ 100 mls/hr IV Q24H [facility]; Protocol Stop: 07/04/22 15:59 Insulin Aspart (Insulin Aspart Per Unit) 0 units SC ACHS [facility] Stop: 07/27/22 20:59 Last Admin: 06/28/22 12:08 Dose: 4 units Insulin Glargine (Lantus Per Unit Charge) 15 units SQ BID HERI Stop: 07/28/22 08:59 Last Admin: 06/28/22 08:23 Dose: 15 units Miscellaneous (Carbohydrates For Hypoglycemia ) 15 - 30 gm PO UD PRN PRN Reason: Hypoglycemia Protocol Stop: 07/27/22 19:57
[2022-06-28] MEDS: ACETAMINOPHEN 325 MG TAB PO PRN (14:56)
[2022-06-28] MEDS ORDERED: cefTRIAXone SODIUM 2,000 MG in DEXTROSE 5% 50 ML IV SCH (16:00)
[2022-06-28] MEDS: ENOXAPARIN INJ 40 MG/0.4 ML SYR SQ SCH (16:43)
[2022-06-28] MEDS: SODIUM CHLORIDE 0.9% 1000ML 1,000 ML IV SCH (16:43)
[2022-06-28 17:22] LABS: A calco-baum cmplx NotReported Not Detected (NotDetected); Bact fragilis Not Reported Not Detected (NotDetected); C auris Not Reported Not Detected (NotDetected); Calbicans Not Reported Not Detected (NotDetected); Candida glabrata Not Reported Not Detected (NotDetected); Candida krusei Not Reported Not Detected (NotDetected); Cneoformans/gatti Not Reported Not Detected (NotDetected); Cparapsilosis Not Reported Not Detected (NotDetected); Ctropicalis Not Reported Not Detected (NotDetected); E cloacae compx Not Reported Not Detected (NotDetected); Efaecalis Not Reported Not Detected (NotDetected); Efaecium Not Reported Not Detected (NotDetected); Enterobacterales Not Reported Not Detected (NotDetected); Escherichia coli Not Reported Not Detected (NotDetected); H influenzae Not Reported Not Detected (NotDetected); K aerogenes Not Reported Not Detected (NotDetected); Koxytoca Not Reported Not Detected (NotDetected); Kpneumoniae grp Not Reported Not Detected (NotDetected); Lmonocyt Not Reported Not Detected (NotDetected); N meningitidis Not Reported Not Detected (NotDetected); P aeruginosa Not Reported Not Detected (NotDetected); Proteus spp Not Reported Not Detected (NotDetected); Salmonella spp Not Reported Not Detected (NotDetected); Smarcescens Not Reported Not Detected (NotDetected); Staph lugdunensis Not Reported Not Detected (NotDetected); Staph spp. Not Reported DETECTED (NotDetected); Staphaureus Not Reported Not Detected (NotDetected); Staphepi Not Reported DETECTED (NotDetected); Staphylococcus spp. DETECTED (NotDetected); Stenmaltophilia Not Reported Not Detected (NotDetected); Strep agal(GrpB) Not Reported Not Detected (NotDetected); Strep pneum Not Reported Not Detected (NotDetected); Strep pyog (GrpA) Not Reported Not Detected (NotDetected); Strep spp Not Reported Not Detected (NotDetected); mecAC Resistant Gene Not Detected (NotDetected)
[2022-06-28 17:51] LABS: Staphylococcus epidermidis DETECTED (NotDetected)
[2022-06-29] MEDS: SODIUM CHLORIDE 0.9% 1000ML 1,000 ML IV SCH (00:54)
[2022-06-29 06:37] LABS: Estimated Average Glucose 180 mg/dl; Hemoglobin A1C 7.9 % (4.5-5.6)
--- NOTE | 2022-06-29 07:12 | XRay Report ---
XR chest 1V portable HISTORY: 71 years-old Male pneumonia with hypoxia acute shortness of breath with hypoxia COMPARISON: Chest radiograph and chest CT 06/27/2022 TECHNIQUE: Portable AP view of the chest FINDINGS: Cardiac silhouette is enlarged. There are persistent left midlung and bibasilar airspace opacities wh ich have mildly progressed. No pneumothorax, large pleural effusion or overt pulmonary edema. Bones a ppear grossly intact. IMPRESSION: Mildly progressed airspace opacities within the left midlung and left lung base compatibl e with worsening pneumonia. ACT 112: Negative or not required by law. The above report was generated using voice recognition software. It may contain grammatical, syntax o r spelling errors. Electronically signed by: Kev Camacho M.D. 06/29/2022 7:10 AM
[2022-06-29] MEDS: ENOXAPARIN INJ 40 MG/0.4 ML SYR SQ SCH (07:35)
[2022-06-29] MEDS: guaiFENesin 600 MG TABCR PO SCH (07:35)
[2022-06-29] MEDS: DOXYCYCLINE HYCLATE 100 MG CAP PO SCH (07:35)
[2022-06-29 07:36] LABS: Hematocrit (blood only) 29.5 % (40.1-51.0); Hemoglobin 9.9 g/dl (14.0-18.0); Mean Corpuscular Hemoglobin 28.4 pg (25.0-34.0); Mean Corpuscular Hgb Conc 33.6 g/dL (32.0-36.0); Mean Corpuscular Volume 84.5 fL (80.0-100.0); Mean Platelet Volume 8.8 fL (9.4-12.4); Platelet Count 298 K/uL (130-400); RDW Coefficient of Variation 13.9 % (11.5-14.5); RDW Standard Deviation 43.4 fL (36.4-46.3); Red Blood Count 3.49 M/uL (4.63-6.08); White Blood Count 6.35 K/ul (4.8-10.8)
[2022-06-29 07:56] LABS: Basophils # (auto) 0.05 K/uL (0-0.2); Basophils % (auto) 0.8 %; Eosinophils # (auto) 0.29 K/uL (0-0.50); Eosinophils % (auto) 4.6 %; Immature Granulocytes # (auto) 0.09 K/uL (0.00-0.02); Immature Granulocytes % (auto) 1.4 %; Monocytes # (auto) 0.83 K/uL (0.24-0.82); Monocytes % (auto) 13.1 %; Neutrophils # (auto) 3.69 K/uL (1.4-6.5); Neutrophils % (auto) 58.1 %
[2022-06-29 08:09] LABS: BUN Creatinine Ratio 15.3 (10-20); Creatinine Clr Calc Pharmacy 78.4 ml/min; Est GFR (African American) 90.2 ml/min; Est GFR (Non-African American) 77.8 ml/min; Potassium 3.4 mmol/L (3.5-5.1)
[2022-06-29] MEDS: INSULIN ASPART PER UNIT SC SCH ×2 (08:13→12:04)
[2022-06-29] MEDS: LANTUS PER UNIT CHARGE SQ SCH (08:13)
--- NOTE | 2022-06-29 16:03 | Discharge Summary ---
Date of Service June 29, 2022 Admission HPI Per Admitting Provider 71 y/o male with DM 2 on insulin presenting with fever and weakness x few days. Patient travelled recently to [place] and upon returning to [place] last Wednesday, patient started to have weakness associated with shaking chills. He also had night sweats, poor appetite and intermittent confusion as per . Yesterday, he was so weak that he fell while walking to the bathroom. At the ER, patient was placed on 2 L o2 via NC. CXR showed L lower lobe pneumonia. On exam, patient is oriented x 3, appears somewhat weak, not in distress. No other symptoms. Principal Diagnosis community acquired pneumonia Discharge Exam CONSTITUTIONAL: WNWD, vitals as above, generally appears fatigued and ill but NAD. EYES: normal conjunctivae, no scleral icterus ENT: external ear and nose normal, MMM NECK: trachea midline RESPIRATORY: clear to auscultation bilaterally, no crackles, rales or wheezes, normal respiratory effort CARDIOVASCULAR: regular rate and rhythm, S1 and 2 heard without murmurs, gallops or rubs, no JVD, no peripheral edema CHEST: inspection of chest was normal GASTROINTESTINAL: soft, nontender, ND, no guarding MUSCULOSKELETAL: strength 5/5 throughout, head is normocephalic and atraumatic, neck supple, normal palpation of chest wall without tenderness SKIN: warm and dry NEUROLOGIC: CN 2-12 grossly intact, no sensory deficit, normal cognition, normal speech, no tremor PSYCHIATRIC: alert cooperative and oriented to person, place and time. Euthymic mood, makes good eye contact, language grossly intact, recent and remote memory grossly intact. Discharge Data Allergies Allergy/AdvReac Type Severity Reaction Status Date / Time No Known Allergies Allergy Verified 06/27/22 17:33 Consultations 06/27/22 16:49 ED Decision to Admit Stat Ordered Studies 06/27/22 17:37 CT chest diagnostic wo con Urgent CT head/brain wo con Urgent Hospital Course (1) Left lower lobe pneumonia: (2) Acute hyponatremia: (3) Diabetes mellitus type 2, insulin dependent: (4) Hypokalemia: (5) Falls: (6) DVT prophylaxis: Plan 71-year-old diabetic man presented with several days of fever and weakness. He had traveled to [place] where he began to become sick and arrived in [place] with shaking chills. He also had intermittent confusion and night sweats along with poor appetite. In the ER a chest x-ray revealed pneumonia and he was placed on low-dose oxygen. He responded well to intravenous antibiotics which were continued for a couple of days. Initial blood cultures revealed evidence of coag negative staph, which may have been a skin contaminant. Repeat cultures were negative. Clinically he was doing very well. He also had evidence of mild anemia including a hemoglobin of 9.9 down from 11.5 on admission, partially dropped possibly from hemodilution with IV fluids. This should be followed up as outpatient and appropriate anemia work-up should be undertaken as needed. At time of discharge he was mentating and ambulating well and tolerating p.o. He underwent a two-step respiratory test which was negative for the need of oxygen. He was discharged in stable condition with close primary care follow-up recommended. The case was discussed with his and all questions were answered. Notably a pneumonia and flu vaccine were offered to him, however he declined at this time. Will discuss with his primary care doctor during follow-up. He did also have some acute hyponatremia likely related to poor p.o. intake while he was ill. This resolved to normal levels prior to his discharge. Total Time Total Time Spent Total Time Spent (In Minutes): 60 Discharge Plan Discharge Items Patient Disposition: Home - Self-Care Reason For Visit: PNEUMONIA Discharge Diagnosis: community acquired pneumonia anemia elevated blood pressure-situational Condition on Discharge: Good Activity: Resume your previous activity Non-emergency contact: Primary Care Provider Call non-emergency contact if: you have any medication questions, your symptoms worsen and your temperature is above 101.5 Follow-up/Referrals: Dariusz Cordova MD [Primary Care Provider] - (Date & Time 07/01/2022 10:20 AM Provider Elenita Denney MD [facility] ) Diet: Carb Consistent or DM2 Addtl Attending Provider Instructions: Please take all medications as instructed on discharge list below. Please complete the entire antibiotic course as prescribed. A repeat chest xray is recommended in 4 weeks to ensure complete resolution of the pneumonia. There are some labs (rickettsial panel, blood cultures) that were pending at time of discharge. Please review these results with your primary care provider in followup. After hydrating you, your H/H dropped slightly and you are now anemic. A repeat CBC at followup is recommended with further investigation as needed. Your blood pressure was elevated to 140-160 systolic during this hospital stay. Further monitoring of your blood pressure is warranted over the next few weeks. Please discuss findings with your primary care provider. Please consider a pneumonia vaccine if you have not had one after age 65 yrs, and the seasonal influenza vaccination is also recommended as soon as it becomes available this month or next. It was a pleasure taking care of you! Please call if you have any questions or problems. You can reach a [facility] hospitalist on duty at [facility] 24 hours a day by calling [phone]. Take care of yourself. Kristal Boucher, DO [facility] Pending Studies at Discharge: Yes Studies:: rickettsial panel, blood cultures Stand-Alone Forms: My [facility] Medications and DC Order Prescriptions: New cefdinir 300 mg capsule 300 mg PO BID Qty: 14 0RF doxycycline hyclate 100 mg capsule 100 mg PO BID Qty: 14 0RF Continued insulin aspart U-100 [Novolog Flexpen U-100 Insulin] 100 unit/mL (3 mL) insulin pen 12 - 18 sliding scale dose SUBCUT TIDM insulin glargine [Lantus Solostar U-100 Insulin] 100 unit/mL (3 mL) insulin pen 18 unit SUBCUT PM Discharge Orders: Discharge Order (Routine); Ordered 06/29/22 Ordered By: Kristal Mckeon/Other Patient Handouts: Managing Type 2 Diabetes Admission Data Admit Date/Time: 06/27/22 17:37 Attending Provider: Kristal Boucher Admit Provider: Ranulfo Villegas Primary Care Provider: Dariusz Cordova Other Providers: Ranulfo Villegas Other Interventions: Discharge Summary Assessment (RN) Last Done: 06/29/22 16:39
[2022-07-01 02:33] LABS: 18KDIGG Band REACTIVE; 23KDIGG Band NON-REACTIVE; 23KDIGM Band NON-REACTIVE; 28KDIGG Band NON-REACTIVE; 30KDIGG Band NON-REACTIVE; 39KDIGG Band REACTIVE; 39KDIGM Band NON-REACTIVE; 41KDIGG Band REACTIVE; 41KDIGM Band NON-REACTIVE; 45KDIGG Band NON-REACTIVE; 58KDIGG Band REACTIVE; 66KDIGG Band NON-REACTIVE; 93KDIGG Band NON-REACTIVE; Lyme Antibodies, WB IgG NEGATIVE (NEGATIVE); Lyme Antibodies, WB IgM NEGATIVE (NEGATIVE)
[2022-07-02 07:36] LABS: Babesia microti DNA Not Detected (Not Detected)
[2022-07-02 08:11] LABS: Ehrlichia chaff DNA Bld Negative (Negative)
== END 2022-06-29 18:05 | disposition home or self-care (01) | DRG 194 ==
LOC: ED 12:36 → SUATTDRO 17:37 → 2W 17:37